=== PATIENT | female | born 1990 | race Caucasian/White ===

== ENCOUNTER 2021-11-01 07:41 | Inpatient (IN) ==
[2021-11-01] MEDS ORDERED: OXYTOCIN 30 UNITS/500 ML BAG IV PRN (10:10)
--- NOTE | 2021-11-01 10:10 | Labor Progress Brief Note ---
Date of Service November 01, 2021 Assessment & Plan (1) Encounter for induction of labor: Plan: Induction for IUGR at 38+ week Reviewed induction with pt Bedside sono; Vt VE; Ft/thick/post/-3 EFW 6lbs Starting with Cervidil (2) IUGR (intrauterine growth restriction): Admission and Anticipated Discharge Date Admission Date: November 01, 2021 Results & Data ([facility]) Vital Signs (Past 12 Hours) Vital Signs Temp Pulse Resp BP 11/01/21 08:04 36.5 C 18 11/01/21 07:57 66 136/81 11/01/21 07:56 36.5 C 16
[2021-11-01] MEDS: miSOPROStoL 50 MCG TAB PO SCH ×2 (10:26→14:32)
[2021-11-01 10:37] LABS: Hematocrit (blood only) 36.3 % (34.1-44.9); Hemoglobin 12.2 g/dl (12.0-16.0); Mean Corpuscular Hgb Conc 33.6 g/dL (32.0-36.0); Mean Corpuscular Volume 83.3 fL (80.0-100.0); Mean Platelet Volume 10.7 fL (9.4-12.3); Platelet Count 249 K/uL (130-400); RDW Coefficient of Variation 12.3 % (11.5-14.5); RDW Standard Deviation 37.3 fL (36.4-46.3); Red Blood Count 4.36 M/uL (3.93-5.22); White Blood Count 12.37 K/ul (4.8-10.8)
[2021-11-01] MEDS ORDERED: DINOPROSTONE 10 MG INSERT PV ONE (22:12)
--- NOTE | 2021-11-01 23:00 | Labor Progress Brief Note ---
Date of Service November 01, 2021 Assessment & Plan (1) IUGR (intrauterine growth restriction): Plan: Induction for IUGR FHR; CAT1 Ctx ; Minimal VE; Ft/post Cervidil placed in vagina Admission and Anticipated Discharge Date Admission Date: November 01, 2021 Results & Data ([facility]) Vital Signs (Past 12 Hours) Vital Signs Temp Pulse Resp BP 11/01/21 22:44 89 143/82 H 11/01/21 19:59 36.7 C 18 11/01/21 19:07 55 L 133/93 11/01/21 14:35 36.8 C 16 11/01/21 14:33 71 127/74 11/01/21 11:29 64 121/85 11/01/21 11:25 36.7 C 16
[2021-11-02] MEDS: miSOPROStoL 50 MCG TAB PO SCH ×4 (14:03→22:22)
[2021-11-02] MEDS: LACTATED RINGER'S 1,000 ML IV PRN (17:08)
[2021-11-02] MEDS ORDERED: DINOPROSTONE 10 MG INSERT PV ONE (19:00)
--- NOTE | 2021-11-02 19:30 | Labor Progress Brief Note ---
Date of Service November 02, 2021 Assessment & Plan (1) IUGR (intrauterine growth restriction): Plan: Induction for IUGR FHR; CAT1 Ctx ; Minimal VE; 1 c/50/-3 Plan Cervidil paced in the vagina for cervical ripening pain meds including epidural as the pt deires Admission and Anticipated Discharge Date Admission Date: November 01, 2021 Results & Data ([facility]) Vital Signs (Past 12 Hours) Vital Signs Temp Pulse Resp BP 11/02/21 19:22 66 124/87 11/02/21 19:19 69 132/94 11/02/21 18:16 63 133/82 11/02/21 17:09 62 126/84 11/02/21 14:03 76 131/83 11/02/21 11:50 36.9 C 84 20 131/73 11/02/21 10:04 72 140/90 11/02/21 08:18 54 L 120/78
[2021-11-02] MEDS ORDERED: miSOPROStoL 50 MCG TAB PO SCH (21:00)
--- NOTE | 2021-11-03 08:22 | Labor Progress Brief Note ---
Date of Service November 03, 2021 Assessment & Plan Admission and Anticipated Discharge Date Admission Date: November 01, 2021 Physical Exam Genitourinary: Manual OB Exam: + cervical dilation fingertip, + cervical effacement 50% and + station high OB Exam Monitor Tracing: + external FHT monitor used, + external uterine monitor used, + category I and + normal FHT variability Cervidil removed plan for Cole for cervical ripening Results & Data ([facility]) Vital Signs (Past 12 Hours) Vital Signs Temp Pulse Resp BP 11/03/21 07:15 36.8 C 16 11/03/21 07:15 63 130/89 11/03/21 03:50 18 11/03/21 03:50 36.6 C 18 11/03/21 03:51 81 111/69 11/03/21 00:22 36.6 C 65 16 111/70 11/02/21 22:01 20 11/02/21 22:01 36.7 C 20 11/02/21 22:03 61 132/78
[2021-11-03] MEDS ORDERED: OXYTOCIN 30 UNITS/500 ML BAG IV PRN (10:14)
[2021-11-03] MEDS ORDERED: Nursing to Pharmacy Communication SCH (10:15)
[2021-11-03] MEDS: LACTATED RINGER'S 1,000 ML IV PRN ×3 (10:32→22:23)
--- NOTE | 2021-11-03 10:35 | Labor Progress Brief Note ---
Date of Service November 03, 2021 Assessment & Plan Admission and Anticipated Discharge Date Admission Date: November 01, 2021 Physical Exam Genitourinary: Manual OB Exam: + cervical dilation fingertip, + cervical effacement 50% and + station high OB Exam Monitor Tracing: + external FHT monitor used, + external uterine monitor used, + category I and + normal FHT variability Cole placed in cervix with 30 ml saline placed in balloon. Results & Data ([facility]) Vital Signs (Past 12 Hours) Vital Signs Temp Pulse Resp BP 11/03/21 07:15 36.8 C 16 11/03/21 07:15 63 130/89 11/03/21 03:50 18 11/03/21 03:50 36.6 C 18 11/03/21 03:51 81 111/69 11/03/21 00:22 36.6 C 65 16 111/70
[2021-11-03] MEDS ORDERED: NALOXONE HCL 1 MG in SODIUM CHLORIDE 0.9% 1000ML 1,000 ML IV PRN (16:30)
[2021-11-03] MEDS ORDERED: ePHEDrine sulfate 50 MG/ML AMP ONE (16:30)
[2021-11-03] MEDS ORDERED: ePHEDrine sulfate 50 MG/ML AMP IV PRN (16:30)
[2021-11-03] MEDS ORDERED: NALOXONE HCL 0.4 MG/1 ML VIAL/CARP IV PRN (16:30)
[2021-11-03] MEDS ORDERED: fentaNYL citrate 100 MCG/2 ML VIAL ONE (16:30)
[2021-11-03] MEDS ORDERED: SODIUM CHLORIDE 0.9% INJ 10 ML VIAL ONE (16:30)
[2021-11-03] MEDS ORDERED: diphenhydrAMINE 50 MG/ML VIAL IV PRN (16:30)
[2021-11-03] MEDS ORDERED: ONDANSETRON INJ 2 MG/ML 2 ML VIAL IV PRN (16:30)
[2021-11-03] MEDS ORDERED: fentaNYL 2MCG/ML ROPIVACAINE 1.25MG/ML 100 ML BAG EPI PRN (16:30)
[2021-11-03] MEDS ORDERED: NALBUPHINE HCL INJ 10 MG/ML AMP IV PRN (16:30)
[2021-11-03] MEDS ORDERED: BUPIVACAINE 0.25% 30 ML VIAL ONE (16:30)
[2021-11-03] MEDS ORDERED: fentaNYL 2MCG/ML ROPIVACAINE 1.25MG/ML 100 ML BAG EPI ONE (16:31)
[2021-11-03] MEDS ORDERED: LIDOCAINE 2%/EPINEPHRINE 1:200,000 20 ML SDV ONE (16:31)
--- NOTE | 2021-11-03 16:31 | Anesthesiology Consultation ---
Date of Service November 03, 2021 Assessment & Plan (1) Encounter for pre-operative examination: Chart Review Chart Review: Patient NOT seen in Pre Admission Testing and Acceptable Risk for Labor Epidural Consults Requested none History Height/Weight Height: 5 ft 2 in Weight: 75.297 kg Allergies Allergy/AdvReac Type Severity Reaction Status Date / Time No Known Allergies Allergy Mild Unverified 08/17/06 11:54 Medications Home Medications Medication Instructions Recorded Confirmed Last Taken vitamins-iron fumarate 65 1 tab PO DAILY 11/02/21 11/02/21 10/31/21 20:00 mg iron-folic acid 1 mg tablet Active Medications Generic Name Dose Route Start Last Admin Trade Name Freq PRN Reason Stop Dose Admin Lactated Ringer's 1,000 mls @ 125 mls/hr 11/01/21 10:10 11/03/21 16:50 Lr IV 11/05/21 10:09 999 mls/hr .Q8H PRN Administration L&D Protocol Protocol Oxytocin 30 units in 500 mls @ 20 mls/hr 11/03/21 10:14 11/03/21 15:35 Pitocin IV 11/05/21 10:13 1.2 units/hr .Q24H PRN 20 mls/hr Labor Induction/Augmentation Titration Protocol 1.2 UNITS/HR Past Medical History Medical History Asthma Past Surgical History Surgical History [place] teeth removed Social History Smoking Status: Never smoker Do You Dip or Chew Tobacco: No Hx Alcohol Use: No Hx Substance Use: No Physical Exam Vital Signs Last Vital Signs Temp 37.0 C 11/03/21 14:35 Pulse 69 11/03/21 16:34 Resp 16 11/03/21 14:35 BP 135/92 11/03/21 16:16 Pulse Ox 96 11/03/21 16:34 Testing Laboratory Results 11/01/21 09:40
--- NOTE | 2021-11-03 22:16 | Labor Progress Brief Note ---
Date of Service November 03, 2021 Assessment & Plan Admission and Anticipated Discharge Date Admission Date: November 01, 2021 Physical Exam Genitourinary: Manual OB Exam: + cervical dilation 9 cm and 10 cm, + cervical effacement 100%, + station + 1 and + amniotic fluid clear OB Exam Monitor Tracing: + external FHT monitor used, + external uterine monitor used, + category I and + normal FHT variability cervix with anterior lip Results & Data ([facility]) Vital Signs (Past 12 Hours) Vital Signs Temp Pulse Resp BP Pulse Ox 11/03/21 19:00 16 11/03/21 12:40 36.6 C 20 11/03/21 22:14 95 H 98 11/03/21 22:09 97 H 97 11/03/21 22:04 69 96 11/03/21 21:59 83 97 11/03/21 21:58 76 120/70 11/03/21 21:54 70 95 11/03/21 21:49 67 96 11/03/21 21:44 62 96 11/03/21 21:39 65 96 11/03/21 21:34 64 96 11/03/21 21:29 55 L 96 11/03/21 21:28 54 L 115/67 11/03/21 21:24 57 L 97 11/03/21 21:21 56 L 94 11/03/21 21:19 56 L 95 11/03/21 21:14 53 L 96 11/03/21 21:10 16 11/03/21 21:10 36.5 C 16 11/03/21 21:09 61 97 11/03/21 21:04 55 L 96 11/03/21 20:59 54 L 96 11/03/21 20:58 53 L 112/63 11/03/21 20:54 58 L 98 11/03/21 20:49 54 L 97 11/03/21 20:44 60 97 11/03/21 20:39 56 L 97 11/03/21 20:34 55 L 97 11/03/21 20:29 57 L 98 11/03/21 20:27 55 L 119/64 11/03/21 20:24 57 L 99 11/03/21 20:19 75 97 11/03/21 20:14 73 98 11/03/21 20:09 101 H 100 11/03/21 20:04 79 98 11/03/21 19:59 61 98 11/03/21 19:58 62 130/82 11/03/21 19:54 58 L 97 11/03/21 19:49 58 L 99 11/03/21 19:44 61 99 11/03/21 19:39 71 98 11/03/21 19:34 58 L 99 11/03/21 19:29 61 99 11/03/21 19:28 57 L 131/87 11/03/21 19:24 62 99 11/03/21 19:15 18 11/03/21 19:15 36.8 C 18 11/03/21 19:19 60 100 11/03/21 19:14 66 99 11/03/21 19:09 71 99 11/03/21 19:04 66 99 11/03/21 18:59 72 99 11/03/21 18:58 55 L 120/73 11/03/21 18:54 61 100 11/03/21 18:49 56 L 99 11/03/21 18:44 60 98 11/03/21 18:39 53 L 97 11/03/21 18:34 54 L 97 11/03/21 18:30 16 11/03/21 18:30 16 11/03/21 18:29 53 L 98 11/03/21 18:28 53 L 113/66 11/03/21 18:24 54 L 98 11/03/21 18:19 54 L 99 11/03/21 18:14 55 L 99 11/03/21 18:09 60 98 11/03/21 18:01 16 11/03/21 18:01 16 11/03/21 18:04 58 L 99 11/03/21 17:59 62 98 11/03/21 17:54 98 11/03/21 17:54 72 11/03/21 17:54 58 L 133/85 11/03/21 17:49 59 L 98 11/03/21 17:48 60 128/83 11/03/21 17:44 71 98 11/03/21 17:43 65 131/87 11/03/21 17:39 65 98 11/03/21 17:15 16 11/03/21 17:15 16 11/03/21 17:35 18 11/03/21 17:35 18 11/03/21 17:37 62 127/83 11/03/21 17:34 57 L 98 11/03/21 17:33 60 130/83 11/03/21 17:29 97 11/03/21 17:29 61 11/03/21 17:29 59 L 127/82 11/03/21 17:24 75 97 11/03/21 17:08 16 11/03/21 17:08 16 11/03/21 17:13 16 11/03/21 17:13 16 11/03/21 17:21 16 11/03/21 17:21 16 11/03/21 17:22 71 132/88 11/03/21 17:19 62 97 11/03/21 17:20 65 125/83 11/03/21 17:18 72 128/83 11/03/21 17:16 62 131/82 11/03/21 17:14 66 138/84 97 11/03/21 17:12 88 138/85 11/03/21 17:10 71 143/78 H 11/03/21 17:09 72 97 11/03/21 17:06 66 135/85 11/03/21 17:04 72 138/93 96 11/03/21 17:02 65 136/86 11/03/21 16:59 83 96 11/03/21 17:00 83 18 136/87 11/03/21 16:58 72 133/87 11/03/21 16:56 68 141/88 H 11/03/21 16:54 98 11/03/21 16:54 97 H 11/03/21 16:54 67 139/87 11/03/21 16:52 71 18 145/83 H 11/03/21 16:50 70 151/83 H 11/03/21 16:49 70 16 97 11/03/21 16:48 73 150/85 H 11/03/21 16:30 16 11/03/21 16:30 36.9 C 16 11/03/21 16:47 86 16 176/86 H 11/03/21 16:44 105 H 99 11/03/21 16:39 94 H 100 11/03/21 16:34 69 96 11/03/21 16:16 66 135/92 11/03/21 15:46 68 132/85 11/03/21 15:14 60 133/84 11/03/21 14:45 56 L 136/93 11/03/21 14:35 16 11/03/21 14:35 37.0 C 16 11/03/21 14:15 57 L 134/79 11/03/21 13:44 57 L 126/84 11/03/21 13:16 55 L 125/90 11/03/21 11:45 16 11/03/21 11:45 36.7 C 16 11/03/21 12:44 61 18 137/92 11/03/21 12:14 56 L 122/81 11/03/21 11:44 55 L 127/88 11/03/21 11:10 68 136/94 11/03/21 11:05 67 133/96 11/03/21 11:04 60 136/91 11/03/21 10:39 77 141/95 H
--- NOTE | 2021-11-04 01:18 | Delivery Summary ---
Vaginal Delivery Summary Date of Service November 04, 2021 Vaginal Delivery Summary Delivery Note live male CEM over intact perineum with nuchal cord x1 reduced at delivery with delayed cord clamping and Apgars 8/9 weight pending. Cord blood obtained followed by spontaneous delivery of intact placenta to be sent to pathology. No tears. EBL 100 ml. Bladder drained with red rubber catheter of 150 ml. clear urine. Final sponge and needle count are correct. Mom and baby stable.
[2021-11-04] MEDS ORDERED: ACETAMINOPHEN 325 MG TAB PO PRN (01:24)
[2021-11-04] MEDS ORDERED: DIPHTHERIA/TETANUS/PERTUSSIS 0.5 ML SYR/VIAL IM ONE (01:24)
[2021-11-04] MEDS ORDERED: HYDROCORTISONE ACETATE 25 MG SUPP PR PRN (01:24)
[2021-11-04] MEDS ORDERED: OXYTOCIN 30 UNITS/500 ML BAG IV PRN (01:24)
[2021-11-04] MEDS ORDERED: BENZOCAINE 20% AER SPR 82.5 GM CAN EXT PRN (01:24)
[2021-11-04] MEDS: IBUPROFEN 600 MG TAB PO PRN ×4 (04:03→18:14)
[2021-11-04] MEDS: DOCUSATE SODIUM 100 MG CAP PO SCH ×2 (08:11→20:56)
[2021-11-04] MEDS: PRENATAL VITAMIN 1 TAB PO SCH (08:11)
[2021-11-04] MEDS ORDERED: NON-FORMULARY MEDICATION (Prenatal Vit-Iron Fum-Folic Ac 65 mg iron- 1 mg Tablet) PO SCH (09:00)
--- NOTE | 2021-11-04 09:13 | Anesthesia Procedure Note ---
Date of Service November 04, 2021 Anesthesia Post Epidural Note Vital Signs Vital Signs: Temp Pulse Resp BP Pulse Ox O2 Del Method 37.7 C H 85 18 114/73 98 11/04/21 04:00 11/04/21 04:00 11/04/21 04:00 11/04/21 04:00 11/04/21 04:00 11/04/21 04:00 Pain Intensity Abdomen: Pain Intensity: 1 Notes Mental Status: alert / awake / arousable and participated in evaluation Nausea / Vomiting: adequately controlled Pain: adequately controlled Airway Patency, RR, SpO2: stable & adequate BP & HR: stable & adequate Hydration State: stable & adequate Neuraxial Anesthesia: was administered and sensory block is resolving Anesthetic Complications: no major complications apparent and Pt Satisfied with anesthetic care Epidural: Removed without complications and With tip intact
--- NOTE | 2021-11-04 11:21 | Obstetrical Progress Note ---
Date of Service November 04, 2021 Assessment & Plan (1) Normal course: PPD #1 pt doing well no coampatints Subjective Ambulation: ambulating normally Voiding: no voiding problems Passing Gas:: Yes Diet Tolerance:: regular diet Lochia:: Small Feeding Type:: breast feeding Review of Systems All systems reviewed & are unremarkable except as noted in HPI & below Physical Exam Constitutional WD/WN, vitals as above well developed and well nourished Eyes PERRL, conjunctivae normal, anicteric sclerae Neck trachea midline, no thyromegaly Respiratory normal respiratory effort, lungs clear to auscultation Auscultation: no crackles, no rales and no wheezes Cardiovascular RRR, no murmur, no edema Gastrointestinal (Abdomen) normal bowel sounds, soft, nontender, no hepatosplenomegaly Uterus is below umbilicus Musculoskeletal no cyanosis or clubbing, extremities motor strength 5/5 Skin no rashes, warm and dry Neurologic patellar DTR's 2+ bilat, sensation intact Psychiatric A+Ox3, euthymic affect Genitourinary normal external appearance Results & Data ([facility]) Vital Signs (Past 12 Hours) Vital Signs Temp Pulse Pulse Resp BP BP Pulse Ox 11/04/21 08:05 36.4 C L 74 21 124/76 11/04/21 04:00 37.7 C H 85 18 114/73 98 11/04/21 03:14 75 126/79 11/04/21 02:58 77 18 130/80 11/04/21 02:30 72 121/72 11/04/21 01:44 73 96 11/04/21 01:40 129/71 11/04/21 01:39 76 96 11/04/21 01:34 69 96 11/04/21 01:29 75 96 11/04/21 01:27 105 H 94 11/04/21 01:24 80 95 11/04/21 01:25 84 123/71 11/04/21 01:19 86 95 11/04/21 01:20 82 127/71 11/04/21 01:16 76 122/69 11/04/21 01:14 84 94 11/04/21 01:10 72 124/76 11/04/21 01:09 81 96 11/04/21 01:04 88 96 11/04/21 01:05 83 127/79 07/15/22 00:59 97 H 95 11/04/21 00:57 93 H 136/81 94 11/04/21 00:54 89 97 11/04/21 00:49 142 H 96 11/04/21 00:44 106 H 96 11/04/21 00:39 152 H 95 11/04/21 00:34 95 H 96 11/04/21 00:29 145 H 97 11/04/21 00:27 88 129/79 11/04/21 00:24 95 H 95 11/04/21 00:19 103 H 95 11/04/21 00:14 159 H 96 11/04/21 00:09 161 H 96 11/04/21 00:04 110 H 96 11/03/21 23:59 110 H 95 11/03/21 23:58 131 H 138/77 11/03/21 23:54 115 H 95 11/03/21 23:49 143 H 97 11/03/21 23:44 151 H 98 11/03/21 23:40 125 H 91 11/03/21 23:39 98 H 97 11/03/21 23:34 139 H 97 11/03/21 23:29 93 H 98 11/03/21 23:28 83 127/83 11/03/21 23:24 105 H 97 O2 Del Method 11/04/21 08:05 Room Air 11/04/21 04:00 Room Air 11/04/21 03:14 11/04/21 02:58 11/04/21 02:30 11/04/21 01:44 11/04/21 01:40 11/04/21 01:39 11/04/21 01:34 11/04/21 01:29 11/04/21 01:27 11/04/21 01:24 11/04/21 01:25 11/04/21 01:19 11/04/21 01:20 11/04/21 01:16 11/04/21 01:14 11/04/21 01:10 11/04/21 01:09 11/04/21 01:04 11/04/21 01:05 11/04/21 00:59 11/04/21 00:57 11/04/21 00:54 11/04/21 00:49 11/04/21 00:44 11/04/21 00:39 11/04/21 00:34 11/04/21 00:29 11/04/21 00:27 11/04/21 00:24 11/04/21 00:19 11/04/21 00:14 11/04/21 00:09 11/04/21 00:04 11/03/21 23:59 11/03/21 23:58 11/03/21 23:54 11/03/21 23:49 11/03/21 23:44 11/03/21 23:40 11/03/21 23:39 11/03/21 23:34 11/03/21 23:29 11/03/21 23:28 11/03/21 23:24
[2021-11-05] MEDS: IBUPROFEN 600 MG TAB PO PRN ×2 (05:38→09:06)
[2021-11-05 07:00] LABS: Basophils # (auto) 0.08 K/uL (0-0.2); Basophils % (auto) 0.5 %; Eosinophils # (auto) 0.07 K/uL (0-0.50); Eosinophils % (auto) 0.4 %; Hematocrit (blood only) 31.9 % (34.1-44.9); Hemoglobin 10.7 g/dl (12.0-16.0); Immature Granulocytes # (auto) 0.09 K/uL (0.00-0.02); Immature Granulocytes % (auto) 0.5 %; Lymphocytes # (auto) 2.33 K/uL (1.2-3.4); Lymphocytes % (auto) 13.5 %; Mean Corpuscular Hemoglobin 28.2 pg (25.0-34.0); Mean Corpuscular Hgb Conc 33.5 g/dL (32.0-36.0); Mean Corpuscular Volume 83.9 fL (80.0-100.0); Mean Platelet Volume 10.6 fL (9.4-12.3); Monocytes # (auto) 0.88 K/uL (0.24-0.82); Monocytes % (auto) 5.1 %; Neutrophils # (auto) 13.79 K/uL (1.4-6.5); Platelet Count 212 K/uL (130-400); RDW Coefficient of Variation 12.6 % (11.5-14.5); RDW Standard Deviation 38.4 fL (36.4-46.3); White Blood Count 17.24 K/ul (4.8-10.8)
[2021-11-05] MEDS ORDERED: FERROUS SULFATE 325 MG TAB PO SCH (09:00)
[2021-11-05] MEDS: DOCUSATE SODIUM 100 MG CAP PO SCH (09:06)
[2021-11-05] MEDS: PRENATAL VITAMIN 1 TAB PO SCH (09:06)
--- NOTE | 2021-11-05 09:35 | Obstetrical Progress Note ---
Date of Service November 05, 2021 Assessment & Plan Admission and Anticipated Discharge Date Admission Date: November 01, 2021 Subjective Patient is seen and examined. She feels well, no complaints. Desires d/c if possible She was here since 11/01 for long IOL Ambulating without dizziness Voiding without difficulty Tolerating regular diet with out N&V Bleeding is minimal No fever/ chills/ CP/ SOB/ N&V/ Leg pain Breast feeding without problems Vital Signs Temp Pulse Resp BP Pulse Ox O2 Del Method 11/04/21 23:30 37 C 70 16 123/85 97 Room Air 11/04/21 20:07 37.1 C 76 18 130/83 96 Room Air 11/04/21 16:30 36.6 C 75 22 118/77 Room Air 11/04/21 11:45 36.9 C 84 19 118/76 Room Air Lab Results 11/01/21 11/05/21 Range/Units 09:40 06:02 WBC 12.37 H 17.24 H (4.8-10.8) K/ul RBC 4.36 3.80 L (3.93-5.22) M/uL Hgb 12.2 10.7 L (12.0-16.0) g/dl Hct 36.3 31.9 L (34.1-44.9) % MCV 83.3 83.9 (80.0-100.0) fL MCH 28.0 28.2 (25.0-34.0) pg MCHC 33.6 33.5 (32.0-36.0) g/dL RDW Std Deviation 37.3 38.4 (36.4-46.3) fL RDW Coeff of Rob 12.3 12.6 (11.5-14.5) % Plt Count 249 212 (130-400) K/uL MPV 10.7 10.6 (9.4-12.3) fL Immature Gran % (Auto) 0.5 % Neut % (Auto) 80.0 % Lymph % (Auto) 13.5 % Darke % (Auto) 5.1 % Eos % (Auto) 0.4 % Baso % (Auto) 0.5 % Neut # (Auto) 13.79 H (1.4-6.5) K/uL Lymph # (Auto) 2.33 (1.2-3.4) K/uL Darke # (Auto) 0.88 H (0.24-0.82) K/uL Eos # (Auto) 0.07 (0-0.50) K/uL Baso # (Auto) 0.08 (0-0.2) K/uL Immature Gran # (Auto) 0.09 H (0.00-0.02) K/uL PE: General: Alert, orientedx3, NAD Abd: soft, NT, fundus firm, below Umbilicus Perineum intact, Lochia rubra minimal Ext; NT, no edema AP: 31 yo s/p , ppd# 1.5 delivered at 0048 on 11/04 VSS Afebrile doing well Desires d/c today Elevated WBCC, afebrile, most like from long IOL/ Labor Plan to repeat CBC tonight and d/c if trending down Continue routine care All questions were answered Discussed when to call. Results & Data ([facility]) Vital Signs (Past 12 Hours) Vital Signs Temp Pulse Resp BP Pulse Ox O2 Del Method 11/04/21 23:30 37 C 70 16 123/85 97 Room Air
[2021-11-05 17:23] LABS: Basophils # (auto) 0.06 K/uL (0-0.2); Basophils % (auto) 0.4 %; Eosinophils # (auto) 0.08 K/uL (0-0.50); Eosinophils % (auto) 0.6 %; Hematocrit (blood only) 32.1 % (34.1-44.9); Hemoglobin 10.8 g/dl (12.0-16.0); Immature Granulocytes # (auto) 0.07 K/uL (0.00-0.02); Immature Granulocytes % (auto) 0.5 %; Lymphocytes # (auto) 2.58 K/uL (1.2-3.4); Lymphocytes % (auto) 18.8 %; Mean Corpuscular Hemoglobin 28.2 pg (25.0-34.0); Mean Corpuscular Hgb Conc 33.6 g/dL (32.0-36.0); Mean Corpuscular Volume 83.8 fL (80.0-100.0); Mean Platelet Volume 9.9 fL (9.4-12.3); Monocytes # (auto) 1.11 K/uL (0.24-0.82); Monocytes % (auto) 8.1 %; Neutrophils # (auto) 9.84 K/uL (1.4-6.5); Neutrophils % (auto) 71.6 %; Platelet Count 209 K/uL (130-400); RDW Coefficient of Variation 12.6 % (11.5-14.5); RDW Standard Deviation 38.1 fL (36.4-46.3); Red Blood Count 3.83 M/uL (3.93-5.22); White Blood Count 13.74 K/ul (4.8-10.8)
[2021-11-05] MEDS ORDERED: bisacodyL 5 MG TABEC PO SCH (20:00)
[2021-11-06] MEDS ORDERED: bisacodyL 10 MG SUPP PR PRN
== END 2021-11-05 19:40 | disposition home or self-care (01) | DRG 807 ==
LOC: 4S1 07:41 → 4E1 11-04 03:55

== ENCOUNTER 2023-07-18 07:56 | Inpatient (IN) ==
[2023-07-18] MEDS: LACTATED RINGER'S 1,000 ML IV PRN (08:45)
[2023-07-18] MEDS ORDERED: LIDOCAINE 1% LOCAL 20 ML VIAL INFIL PRN (08:52)
--- NOTE | 2023-07-18 09:00 | History & Physical Report ---
Date of Service July 18, 2023 Assessment & Plan (1) 40 weeks gestation of : Plan: Admit, routine labs Start oxytocin for augmentation Epidural if patient request Anticipate spontaneous vaginal delivery (2) History of prior with IUGR : (3) History of depression, currently in third trimester: (4) Mild intermittent asthma: Admission and Anticipated Discharge Date Admission Date: July 18, 2023 History of Present Illness Chief Complaint: IOL Primary Care Provider: Joyce Taveras PA-C Patient is a pleasant 33-year-old -0-0-1 at 40 weeks and 2 days who presents for induction of labor for postdates. Patient denies any regular contractions, leaking of fluid or vaginal bleeding. Notes good movement. Patient denies any headache, blurry vision, right upper quadrant or epigastric pain. Otherwise feeling well has been complicated by mild intermittent asthma, has not used inhaler for several months. History of depression and anxiety, not currently on anything. Notes a history of IUGR her last , growth has been appropriate this . She denies any history of STDs, including genital herpes. States she is safe at home. Allergies Allergy/AdvReac Type Severity Reaction Status Date / Time No Known Allergies Allergy Mild Unverified 08/17/06 11:54 Home Medications Medication Instructions Recorded Confirmed Type vitamins-iron fumarate 65 1 tab PO DAILY 11/02/21 11/02/21 History mg iron-folic acid 1 mg tablet ferrous sulfate 325 mg (65 mg 325 mg PO DAILY #40 tabs 11/05/21 Rx iron) tablet,delayed release ibuprofen 600 mg tablet 600 mg PO Q6 #40 tabs 11/05/21 Rx vit-iron fum-folic ac 1 tab PO DAILY #90 tabs 11/05/21 Rx Patient History Medical History Asthma Surgical History [place] teeth removed Social History Smoking Status: Never smoker Second Hand Exposure: No; Do You Dip or Chew Tobacco: No; Tobacco Cessation Education Requested by Patient: No Hx Alcohol Use: No Hx Substance Use: No Preferred Language: Maori Communication Ability: Effective Electric Bath Attendant Required: No Beliefs That Will Affect Care: None marital status: Current Living Situation: Spouse Current Living Situation Comment: Jed- , 1 Dog Other Information That Helps Us Care for You: No Feels Safe at Home: Yes Safety Concerns: Feels Safe At This Time Assistive Devices: None OB History -0-0-1 x 1 without any complication EMERGENCY DEPARTMENT PHYSICIAN History See record Review of Systems All systems reviewed & are unremarkable except as noted in HPI & below Physical Exam Constitutional: WD/WN, vitals as above Respiratory: normal respiratory effort, lungs clear to auscultation Cardiovascular: RRR, no murmur, no edema Gastrointestinal (Abdomen): normal bowel sounds, soft, nontender, no hepatosplenomegaly EFW 3500g cephalic Genitourinary: Cervix: 3/50/-3, membranes initially sweep but patient desires AROM at this time. AROM completed with scant clear fluid, IUPC was placed, no cord felt. No complication Results & Data Vital Signs (Past 12 Hours) Vital Signs Temp Pulse Resp BP 07/18/23 08:21 88 132/79 07/18/23 08:16 36.8 C 88 16 132/79 Monitoring External Monitor heart tracing: Baseline 125, moderate variability, positive accelerations no decelerations, category 1 tracing Tocodynamometer Irregular contractions (4) Mild intermittent asthma Asthma complication type: uncomplicated Qualified Code(s): J45.20 - Mild intermittent asthma, uncomplicated
[2023-07-18] MEDS: OXYTOCIN 30 UNITS/NSS 30 UNITS/500 ML BAG IV PRN ×2 (09:05→20:53)
[2023-07-18 09:41] LABS: Hematocrit (blood only) 35.1 % (37.0-47.0); Hemoglobin 11.8 g/dl (12.0-16.0); Mean Corpuscular Hemoglobin 27.4 pg (25.0-34.0); Mean Corpuscular Hgb Conc 33.6 g/dL (32.0-36.0); Mean Corpuscular Volume 81.6 fL (80.0-100.0); Mean Platelet Volume 10.3 fL (9.4-12.4); Platelet Count 224 K/uL (130-400); RDW Coefficient of Variation 12.5 % (11.5-14.5); RDW Standard Deviation 37.1 fL (36.4-46.3); White Blood Count 11.68 K/ul (4.8-10.8)
[2023-07-18] MEDS ORDERED: BUPIVACAINE 0.25% PF 30 ML VIAL EPI PRN (11:43)
[2023-07-18] MEDS ORDERED: NALOXONE HCL 0.4 MG/1 ML VIAL/CARP IV PRN (11:43)
[2023-07-18] MEDS ORDERED: diphenhydrAMINE 50 MG/ML VIAL IV PRN (11:43)
[2023-07-18] MEDS ORDERED: NALOXONE HCL 1 MG in SODIUM CHLORIDE 0.9% 1,000 ML IV PRN (11:43)
[2023-07-18] MEDS ORDERED: NALBUPHINE HCL 5 MG in SYRINGE 0 ML IV PRN (11:43)
[2023-07-18] MEDS ORDERED: fentANYL 2 MCG/ML BUPIVacaine 0.125%-NSS 100ML BAG EPI PRN (11:43)
[2023-07-18] MEDS ORDERED: SODIUM CHLORIDE 0.9% PF INJ 10 ML VIAL EPI PRN (11:43)
[2023-07-18] MEDS ORDERED: LIDOCAINE 2% MPF LOCAL 5 ML VIAL EPI PRN (11:43)
[2023-07-18] MEDS ORDERED: ePHEDrine sulfate 50 MG/ML AMP IV PRN (11:43)
[2023-07-18] MEDS ORDERED: ROPIVACAINE 0.5% PF 5 MG/ML 20 ML VIAL EPI PRN (11:43)
[2023-07-18] MEDS ORDERED: fentaNYL citrate PF 100 MCG/2 ML VIAL EPI PRN (11:43)
--- NOTE | 2023-07-18 11:43 | Anesthesiology Consultation ---
Date of Service July 18, 2023 Assessment & Plan ASA ASA2 Proposed Anesthesia Anesthesia Type: Labor Epidural Risk / Benefits Reviewed With: PT / POA / Parent / Guardian, Accepts Plan and Informed Consent Obtained History Height/Weight Height: 5 ft 2 in Weight: 65.771 kg Allergies Allergy/AdvReac Type Severity Reaction Status Date / Time No Known Allergies Allergy Mild Unverified 08/17/06 11:54 Medications Home Medications Medication Instructions Recorded Confirmed Last Taken vitamins-iron fumarate 65 1 tab PO DAILY 11/02/21 07/18/23 07/18/23 06:00 mg iron-folic acid 1 mg tablet ferrous sulfate 325 mg (65 mg 325 mg PO DAILY #40 tabs 11/05/21 07/18/23 Unknown iron) tablet,delayed release Active Medications Generic Name Dose Route Start Last Admin Trade Name Freq PRN Reason Stop Dose Admin Oxytocin 30 units in 500 mls @ 12 mls/hr 07/18/23 08:52 07/18/23 11:35 Pitocin 30 Units/Nss IV 07/20/23 08:51 0.72 units/hr .Q24H PRN 12 mls/hr Labor Induction/Augmentation Titration Protocol 0.72 UNITS/HR Lactated Ringer's 1,000 mls @ 125 mls/hr 07/18/23 08:52 07/18/23 12:09 Lr IV 07/20/23 08:51 999 mls/hr .Q8H PRN Administration L&D Protocol Protocol Past Medical History Medical History (Updated 07/18/23 @ 09:54 by Natividad Murray RN) Anemia Anxiety depression Normal course IUGR (intrauterine growth restriction) Encounter for induction of labor Asthma Exercise / Class Metabolic Activity II 4-5 Yardwork/Stairs/Walk up hill Past Surgical History Surgical History [place] teeth removed Past Anesthesia History No Hx of Anesthesia Complications and No Family Hx of Anesthesia Complications History of PONV No Hx of PONV and No Hx of Motion Sickness Social History Smoking Status: Never smoker Do You Dip or Chew Tobacco: No Hx Alcohol Use: No Hx Substance Use: No Review of Systems denies fever/cough/ colds/ chest pain/ SOB/ SANTOS denies SANTOS Physical Exam Vital Signs Last Vital Signs Temp 36.8 C 07/18/23 10:45 Pulse 72 07/18/23 12:19 Resp 16 07/18/23 08:16 BP 136/81 07/18/23 12:19 Pulse Ox 98 07/18/23 12:19 ENMT Mouth: no TMJ abnormality and no dentition abnormality Thyromental Distance: > or= 3.5 Finger Breadths Mallampati Class: II Neck neck extension not limited Respiratory normal respiratory effort; no respiratory distress Auscultation: lungs clear to auscultation bilaterally Cardiovascular Rate/Rhythm: regular rate and regular rhythm Neurologic moves all extremities Psychiatric Orientation: alert and oriented x 3 Testing Laboratory Results 07/18/23 09:10
[2023-07-18] MEDS: fentaNYL citrate PF 100 MCG/2 ML VIAL ONE (12:13)
[2023-07-18] MEDS: BUPIVACAINE 0.25% PF 30 ML VIAL ONE (12:13)
[2023-07-18] MEDS: LIDOCAINE 2%/EPINEPHRINE 1:200,000 20 ML PF ONE (12:13)
[2023-07-18] MEDS: fentANYL 2 MCG/ML BUPIVacaine 0.125%-NSS 100ML BAG ONE (12:14)
[2023-07-18] MEDS: ePHEDrine sulfate 50 MG/ML AMP ONE (12:24)
[2023-07-18] MEDS: SODIUM CHLORIDE 0.9% PF INJ 10 ML VIAL EPI STA (12:25)
--- NOTE | 2023-07-18 12:43 | Obstetrical Progress Note ---
Date of Service July 18, 2023 Assessment & Plan (1) 40 weeks gestation of : Plan: Continue oxytocin for augmentation Anticipate spontaneous vaginal delivery (2) History of prior with IUGR : (3) History of depression, currently in third trimester: (4) Mild intermittent asthma: Admission and Anticipated Discharge Date Admission Date: July 18, 2023 Subjective Patient comfortable with epidural at this time, denies any pressure. Denies any other complaints Physical Exam Genitourinary: heart tracing: Baseline 1 25-1 30, moderate variability, positive accelerations no decelerations, category 1 tracing Tocometer: Contractions every 2 minutes, oxytocin currently at 12 milliunits/h, IUPC in place Cervix: 3-4/60/-2 Results & Data Vital Signs (Past 12 Hours) Vital Signs Temp Pulse Resp BP Pulse Ox 07/18/23 12:39 98 07/18/23 12:39 63 07/18/23 12:39 69 129/82 07/18/23 12:34 65 135/67 97 07/18/23 12:29 69 97 07/18/23 12:28 72 132/81 07/18/23 12:27 65 137/84 07/18/23 12:24 67 98 07/18/23 12:23 63 129/79 07/18/23 12:21 70 127/74 07/18/23 12:19 72 136/81 98 07/18/23 12:17 67 120/63 07/18/23 12:14 73 97 07/18/23 12:13 68 138/77 07/18/23 12:11 78 135/71 07/18/23 12:09 82 100 07/18/23 12:08 78 143/86 H 07/18/23 12:04 89 99 07/18/23 11:59 81 95 07/18/23 11:58 99 H 94 07/18/23 11:54 61 97 07/18/23 11:49 63 98 07/18/23 11:44 62 97 07/18/23 11:38 65 124/77 07/18/23 11:09 63 120/74 07/18/23 10:45 36.8 C 07/18/23 10:39 63 131/87 07/18/23 10:08 73 124/85 07/18/23 09:38 64 128/83 07/18/23 09:08 67 127/83 07/18/23 08:21 88 132/79 07/18/23 08:16 36.8 C 88 16 132/79 Laboratory Results Laboratory Results WBC 11.68 K/ul (4.8-10.8) H 07/18/23 09:10 RBC 4.30 M/uL (4.20-5.40) 07/18/23 09:10 Hgb 11.8 g/dl (12.0-16.0) L 07/18/23 09:10 Hct 35.1 % (37.0-47.0) L 07/18/23 09:10 MCV 81.6 fL (80.0-100.0) 07/18/23 09:10 MCH 27.4 pg (25.0-34.0) 07/18/23 09:10 MCHC 33.6 g/dL (32.0-36.0) 07/18/23 09:10 RDW Std Deviation 37.1 fL (36.4-46.3) 07/18/23 09:10 RDW Coeff of Rob 12.5 % (11.5-14.5) 07/18/23 09:10 Plt Count 224 K/uL (130-400) 07/18/23 09:10 MPV 10.3 fL (9.4-12.4) 07/18/23 09:10 (4) Mild intermittent asthma Asthma complication type: uncomplicated Qualified Code(s): J45.20 - Mild intermittent asthma, uncomplicated
--- OUTSIDE RECORDS SUMMARY | 2023-07-18 15:43 | External Medical Summary | Summary of Care ---
Author Name Unknown Organization [facility] Address [address] [place] [address] Phone [phone] Care Team Providers Care Trim Stencil Maker Name Role Phone Unavailable Primary Care Provider Unavailabl e Reason for Visit * Reason Comments Return Visit Encounter Details Date Type Department Care Team (Late st Contact Info) Description 06/22/2023 11:30 AM EST Office Visit Gynecology/Obstetric s [facility] [address] [place] [address] Celina Cole CRNP [address] [place] [address] Normal in third trimester*; History of prior with IUGR ; History of depression, currently Allergies Active Allergy Reactions Criticality Noted Date Comments Adhesive Tape Rash Medium 11/09/2015 Blistered under Steri-strips on Day 2 after Nexplanon placement. documented as of this encounter (statuses as of 06/22/2023) Medications Medication Sig Dispensed Refills Start Date End Date Status 6.75-0.2 MG Oral Tablet Take by mouth. 0 Active Ondansetron 4 MG Oral Tablet Disintegrating (Zofran) Place 1 Tablet on tongue every 8 hours as needed for Nausea. dissolve on tongue. 30 Tablet 1 01/15/2023 Active Iron-Vitamin C 65-125 MG Oral Tablet (Vitron C) Take 1 Tablet by mouth in the morning. 30 Tablet 2 04/27/2023 Active documented as of this encounter (statuses as of 06/22/2023) Active Problems Problem Noted Date Diagnosed Date Normal 12/15/2022 History of prior with IUGR History of depression, currently preg nant 12/15/2022 Overview: No meds at time of NOB SHUBHAM (generalized anxiety disorder) 05/17/2022 anxiety 12/19/2021 Overview: Anxiety and depression primarily related to feeding issues . Depression screen 23, no thoughts of harm to self or others. 12/19 start Zoloft 25 mg Psychiatry referral depression 12/19/2021 Overview: Anxiety and depression . Depression screen 23, no thoughts of harm to self or others. 12/19 start Zoloft 25 mg Psychiatry referral Other seasonal allergic rhinitis 12/14/2014 History of allergy to latex 11/10/2014 Mild intermittent asthma with exacerbation 11/09 Allergic conjunctivitis 11/09/2014 Dyslipidemia, goal to be determined 11/15/2011 Syncope and collapse 11/15/2011 Allergic rhinitis 11/16/2008 Other acne 11/16/2008 Estimated Date of Delivery Comme nts Yes 07/16/2023 Based on last me nstrual period of 10/09/2022 (Exact Date) documented as of this encounter (statuses as of 06/22/2023) Resolved Problems Problem Noted Date Diagnosed Date Resolved Date Anxiety during 12/15/2022 IUGR (intrauterine growth re tardation) affecting mother 10/07/2021 12/19/2021 Overview: EWF 8th %ile at 35 weeks Last Assessment & Plan: Thank you for referring this patient for ultrasound to assess well being for growth restriction. Ultrasound images were reviewed. Interval assessment of anatomy is within normal limits. The fetus is active and the amniotic fluid is within normal limits. BPP is 8/8. Umbilical artery Doppler studies were performed and are within normal limits. Forward flow is seen throughout the cardiac cycle. We discussed the most common etiologies of FGR. Given two normal Doppler studies, patient is opting to skip next week's BPP and Doppler testing. She will be induced in two weeks and she is opting to continue the NSTs but not return for Doppler testing. We discussed movement counting. Low-lying placenta 06/27/2021 Overview: 1.3 cm from os at 28 weeks, recheck 35 wks - Recommend delivery for ALL previas (or low-lying placentas within 1cm of cervical os) between 36w0d to 37w6d without amniocentesis. - If the placental edge is at 1cm or greater from internal os (without vaginal bleeding) current evidence supports consideration for a trial labor and may continue to 41 weeks. Last Assessment & Plan: Resolved as of 35wk ultrasound. Supervision of high-risk pre gnancy, unspecified trimester 04/01/2021 12/19/2021 Maternal asthma complicating 04/01/2021 12/19/2021 Overview: No meds Last Assessment & Plan: Well-controlled without medication. Reports no recent rescue inhaler use. documented as of this encounter (statuses as of 06/22/2023) Immunizations Name Administration Dates Next Due HPV Vaccine, 4-Valent 05/28/2009,02/19/2009,10/2008 TDAP (age 10 and older)(Boostrix) 08/19/2021,05/2014 documented as of this encounter Social History Tobacco Use Types Packs/Day Years Used Date Smoking Tobacco: Former Cigarettes 0.1 1 0 04/23/2010 - 04/23/2011 Smokeless Tobacco: Never Comments:occasional cigarett e Alcohol Use Standard Drinks/Week Comments Not Currently 0 (1 standard drink = 0.6 oz pur e alcohol) occasionally PHQ-2 Answer Date Recorded PHQ-2 Score 0 11/14/2019 Hunger Vital Sign Answer Date Recorded Within the past 12 months, y ou worried that your food would run out before you got the money to buy more. Patient declined Within the past 12 months, t he food you bought just didn't last and you didn't have money to get more. Patient declined [place] Depression Scale Answer Date Recorded [place] Depression Scale Total 0 06/05/2023 The thought of harming myself has occurred to me . Never 06/05/2023 Estimated Date of Delivery Comme nts Yes 07/16/2023 Based on last me nstrual period of 10/09/2022 (Exact Date) Sex and Gender Information Value Date Recorded Sex Assigned at Female 11/30/2022 8:49 AM EDT Gender Identity Female 11/30/2022 8:49 AM EDT Sexual Orientation Straight 11/30/2022 8: 49 AM EDT Job Start Date Occupation Industry Not on file Not on file Not on file documented as of this encounter Last Filed Vital Signs Vital Sign Reading Time Taken Comments Blood Pressure 118/64 06/22/2023 11:34 AM EST Pulse - - Temperature - - Respiratory Rate - - Oxygen Saturation - - Inhaled Oxygen Concentration - - Weight 77.6 kg (171 lb) 06/22/2023 11:34 AM EST Height 160 cm (5' 3") 06/22/2023 11:34 AM EST Body Mass Index 30.29 06/22/2023 11:34 AM EST documented in this encounter Progress Notes * Celina Cole CRNP - 06/22/2023 11:47 AM EST 36w4d Feeling miserable. Having a lot of pelvic pressure and overall discomfort. Baby is active. No regular contractions or bleeding. GBS today. Desires cervical check. Processing Technician Documentation Provider requested warper tender. Name of warper tender: ROS Salter documented in this encounter Nursing Notes * Akanksha Lara LPN - 06/22/2023 11:33 AM EST 36w4d Needs gbs documented in this encounter Plan of Treatment Upcoming Encounters Date Type Department Care Team (Late st Contact Info) Description 06/29/2023 4:30 PM EST Office Visit Gynecology/Obstetrics Ethan Tian [address] [place] [address] Tita Burger PA-C [address] [place] [address] 07/04/2023 3:15 PM EDT Office Visit Gynecology/Obstetrics [facility] [address] [place] [address] Celina Cole CRNP [address] [place] [address] 07/13/2023 4:15 PM EDT Office Visit Gynecology/Obstetrics [facility] [place] [address] Sobeida Patel CN [address] [facility] [place] [address] Pending Results Name Type Priority Associated Diagnoses Date /Time GROUP B STREP CULTURE/PCR Lab Routine Normal in third trimester 06/22/2023 12:01 PM EST Scheduled Orders Name Type Priority Associated Diagnoses Orde r Schedule GROUP B STREP CULTURE/PCR Lab Routine Normal in third trimester Expected: 06/22/2023, Expires: 06/21/2024 Health Maintenance Due Date Last Done Comments Pneumococcal Vaccine: Pediatrics (0 to 5 Years) and At-Risk Patients (6 to 64 Years) (1 of 2 - PCV) 1998 Hepatitis B (1 of 3 - 19+ 3-dose series) 2011 Depression Screening 11/13/2020 11/14/2019 HPV/Co-Test 2022 COVID-19 Vaccine ( season) 2022 Influenza Vaccine (FLU shot) (#1) 2022 Cervical Cancer Screening 04/01/2024 Pap Smear 04/01/2024 04/01/2021, 01/21, 01/15/2015, Additional history exists DTaP,Tdap,and Td Vaccines (3 - Td or Tdap) 08/20/2031 08/19/2021, 09/22/2014 GARDASIL-HPV IMMUNIZATION SERIES Completed 05/28/2009, 02/19/2009, 11/27/2008 MENINGOCOCCAL (MENACTRA/MENVEO) Aged Out No longer eligible based on patient's age to complete this topic documented as of this encounter Medical Devices Not on filedocumented as of this encounter Visit Diagnoses Diagnosis Normal in third trimester- Primary History of prior with IUGR History of depression, currently with other poor obstetric history documented in this encounter
--- OUTSIDE RECORDS SUMMARY | 2023-07-18 15:43 | External Medical Summary | Summary of Care ---
Author Name Unknown Organization [facility] Address [address] [place] [address] Phone [phone] Care Team Providers Care Electrical Maintenance Mechanic Name Role Phone Unavailable Primary Care Provider Unavailabl e Encounter Details Date Type Department Care Team (Late st Contact Info) Description 07/10/2023 Telephone Gynecology/Obstetrics Thorn[facility]olas Tian [address] [place] [address] Celina Cole CRNP [address] [place] [address] Allergies Active Allergy Reactions Criticality Noted Date Comments Adhesive Tape Rash Medium 11/09/2015 Blistered under Steri-strips on Day 2 after Nexplanon placement. documented as of this encounter (statuses as of 07/10/2023) Medications Medication Sig Dispensed Refills Start Date End Date Status 6.75-0.2 MG Oral Tablet Take by mouth. 0 Active Ondansetron 4 MG Oral Tablet Disintegrating (Zofran) Place 1 Tablet on tongue every 8 hours as needed for Nausea. dissolve on tongue. 30 Tablet 1 01/15/2023 Active Additional Information Patient not taking.Reported on 06/29/2023 Iron-Vitamin C 65-125 MG Oral Tablet (Vitron C) Take 1 Tablet by mouth in the morning. 30 Tablet 2 04/27/2023 Active PriLOSEC 10 MG Oral Packet (Omeprazole Magnesium) Take 20 mg by mouth in the morning and 20 mg before bedtime. 0 Active documented as of this encounter (statuses as of 07/10/2023) Active Problems Problem Noted Date Diagnosed Date [...] as of this encounter (statuses as of 07/10/2023) Resolved Problems Problem Noted Date Diagnosed Date [...] as of this encounter (statuses as of 07/10/2023) Immunizations Name Administration Dates Next Due HPV [...] have money to get more. Patient declined [place] Depression Scale Answer Date Recorded [place] Depression Scale Total 0 06/05/2023 The thought [...] on file documented as of this encounter Miscellaneous Notes * Telephone Encounter - Akanksha Lara LPN - 07/10/2023 11:26 AM EDT L&D called asking for us to call pt to let her know she needs to call L&D at 11am on 07/18/23 instead of 6am due to they needed to add a csection onto their schedule. Spoke with pt she verbalized understanding documented in this encounter Plan of Treatment Upcoming Encounters Date Type Department Care Team (Late st Contact Info) Description 07/13/2023 4:15 PM EDT Office Visit Gynecology/Obstetrics [facility] [address] [facility] [place] [address] Sobeida Patel, [address] [place] [address] Health Maintenance Due Date Last Done Comments Pneumococcal Vaccine: Pediatrics (0 to 5 Years) and At-Risk Patients (6 to 64 Years) (1 of 2 - PCV) 1998 Hepatitis B (1 of 3 - 19+ 3-dose series) 2011 Depression Screening 11/13/2020 11/14/2019 HPV/Co-Test 2022 COVID-19 Vaccine (1 - season) 2022 Influenza Vaccine (FLU shot) (#1) [...]
--- OUTSIDE RECORDS SUMMARY | 2023-07-18 15:43 | External Medical Summary | Summary of Care ---
Author Name Unknown Organization [facility] Address [address] [place] [address] Phone [phone] Care Team Providers Care User Experience Designer Name Role Phone Unavailable Primary Care Provider Unavailabl e Reason for Visit * Reason Comments Return Visit Encounter Details Date Type Department Care Team (Late st Contact Info) Description 07/04/2023 3:15 PM EDT Office Visit Gynecology/Obstetric s Ethan Tian [address] [place] [address] Celina Cole CRNP [address] [facility] [place] [address] Normal in third trimester*; History of prior with IUGR ; History of depression, currently Allergies Active Allergy Reactions Criticality Noted Date Comments Adhesive Tape Rash Medium 11/09/2015 Blistered under Steri-strips on Day 2 after Nexplanon placement. documented as of this encounter (statuses as of 07/04/2023) Medications Medication Sig Dispensed Refills Start Date [...] as of this encounter (statuses as of 07/04/2023) Active Problems Problem Noted Date Diagnosed Date Normal 12/15/2022 History of prior with IUGR History of depression, currently preg nant 12/15/2022 Overview: No meds at time of NOB HSUBHAM (generalized anxiety disorder) 05/17/2022 anxiety 12/19/2021 Overview: [...] as of this encounter (statuses as of 07/04/2023) Resolved Problems Problem Noted Date Diagnosed Date [...] as of this encounter (statuses as of 07/04/2023) Immunizations Name Administration Dates Next Due HPV Vaccine, 4-Valent 05/28/2009,02/19/2009,0810/2008 TDAP (age 10 and older)(Boostrix) 08/19/2021,05/2014 documented [...] have money to get more. Patient declined [place] Depression Scale Answer Date Recorded [place] Depression Scale Total 0 06/05/2023 The thought [...] Sign Reading Time Taken Comments Blood Pressure 132/86 07/04/2023 3:22 PM EDT Pulse - - Temperature - - Respiratory Rate - - Oxygen Saturation - - Inhaled Oxygen Concentration - - Weight 78.5 kg (173 lb) 07/04/2023 3:22 PM EDT Height 160 cm (5' 3") 07/04/2023 3:22 PM EDT Body Mass Index 30.65 07/04/2023 3:22 PM EDT documented in this encounter Progress Notes * Celina Cole CRNP - 07/04/2023 3:55 PM EDT 38w2d Not feeling well today. Overall not well, feeling anxious. Didn't sleep well last night- son was upovernight and she didn't fall back to sleep. BP elevated initially, but repeat was WNL, back to her baseline. Urine dip today, WNL Baby is moving less than he used to, but still adequate movement. No bleeding or LOF. Some low belly contractions. Encouraged to call if not feeling well tomorrow. By end of visit seemed calmer than when she arrived. IOL scheduled for 07/17. Agronomy Specialist Documentation Provider requested oil pipe inspector. Name of oil pipe inspector: ROS Salter * Akanksha Lara LPN - 07/04/2023 3:22 PM EDT 38w2d Would like cervix checked documented in this encounter Plan of Treatment Upcoming Encounters Date Type Department Care Team (Late st Contact Info) Description 07/13/2023 4:15 PM EDT Office Visit Gynecology/Obstetrics [facility] [address] [place] [address] Sobeida Patel CNM [address] [place] [address] Health Maintenance Due Date Last Done Comments [...]
--- OUTSIDE RECORDS SUMMARY | 2023-07-18 15:43 | External Medical Summary | Summary of Care ---
Author Name Unknown Organization [facility] Address [address] [place] [address] Phone [phone] Care Team Providers Care Vice President Regulatory Name Role Phone Unavailable Primary Care Provider Unavailabl e Reason for Visit * Reason Comments Return Visit Encounter Details Date Type Department Care Team (Late st Contact Info) Description 07/13/2023 4:15 PM EDT Office Visit Gynecology/Obstetric s [facility] [address] [facility] [place] [address] Sobeida Patel, [facility] [address] [facility] [place] [phone] Normal in third trimester*; History of prior with IUGR ; History of depression, currently Allergies Active Allergy Reactions Criticality Noted Date Comments Adhesive Tape Rash Medium 11/09/2015 Blistered under Steri-strips on Day 2 after Nexplanon placement. documented as of this encounter (statuses as of 07/13/2023) Medications Medication Sig Dispensed Refills Start Date [...] as of this encounter (statuses as of 07/13/2023) Active Problems Problem Noted Date Diagnosed Date [...] as of this encounter (statuses as of 07/13/2023) Resolved Problems Problem Noted Date Diagnosed Date [...] as of this encounter (statuses as of 07/13/2023) Immunizations Name Administration Dates Next Due HPV Vaccine, 4-Valent 05/28/2009,02/19/2009,080 10/2008 TDAP (age 10 and older)(Boostrix) 08/19/2021,05/2014 documented [...] have money to get more. Patient declined [place] Depression Scale Answer Date Recorded [place] Depression Scale Total 0 06/05/2023 The thought [...] Sign Reading Time Taken Comments Blood Pressure 124/84 07/13/2023 4:24 PM EDT Pulse - - Temperature - - Respiratory Rate - - Oxygen Saturation - - Inhaled Oxygen Concentration - - Weight 78.5 kg (173 lb) 07/13/2023 4:24 PM EDT Height - - Body Mass Index 30.65 07/04/2023 3:22 PM EDT documented in this encounter Progress Notes * Sobeida Patel CNM - 07/13/2023 4:39 PM EDT Alyssa Santa Kee is a 33 year old female here for her routine OB appointment at 39w4d Her Estimated Date of Delivery: 07/16/23 REVIEW OF SYSTEMS: She affirms movement. States that baby's movements have been smaller but the same in number. Still feeling 10 movements in 2 hours. Doing regular kick counts. Denies vaginal bleeding, LOF, N/V, headaches, vision changes, and RUQ pain. Occasional contractionsbut no consistent pattern. PHYSICAL EXAM: Filed Vitals: 07/13/23 1624 BP: 124/84 Weight: 78.5 kg (173 lb) +FHT 115-125bpm Fundal height: 39cm Cervix: 1cm/50%/-3, membrane sweep performed per patient request Geriatric Personal Care Aide Documentation Provider requested inspector rag sorting. Name of inspector rag sorting: Alyssa Yeung LPN ASSESSMENT/PLAN: (Z87.59) History of prior with IUGR Plan: -Baby measuring 51st percentile on 05/22/23 (O99.891, Z86.59) History of depression, currently (Z34.90) Normal (primary encounter diagnosis) Plan: -offered NST due to concern for decreased movement or smaller movement; patient politely declined. Reviewed kick counts in detail and encouraged patient to call with concerns. - labor precautions and kick counts reviewed -Elective IOL scheduled for 07/18/23 at [facility]. Patient aware that her upcoming induction is elective.Aware of the recommendation to deliver by 42 weeks. Sobeida Patel CNM documented in this encounter Plan of Treatment Health Maintenance Due Date Last Done Comments [...]
--- OUTSIDE RECORDS SUMMARY | 2023-07-18 15:43 | External Medical Summary | Summary of Care ---
Author Name Unknown Organization [facility] Address [address] [place] [address] Phone [phone] Care Team Providers Care Loftsman Name Role Phone Unavailable Primary Care Provider Unavailabl e Reason for Visit * Reason Comments Return Visit Encounter Details Date Type Department Care Team (Late st Contact Info) Description 06/29/2023 4:30 PM EST Office Visit Gynecology/Obstetric s Ethan Tian [address] [place] [address] Tita Burger PA-C [address] [place] [address] Normal in third trimester*; History of prior with IUGR ; History of depression, currently Allergies Active Allergy Reactions Criticality Noted Date Comments Adhesive Tape Rash Medium 11/09/2015 Blistered under Steri-strips on Day 2 after Nexplanon placement. documented as of this encounter (statuses as of 06/29/2023) Medications Medication Sig Dispensed Refills Start Date [...] as of this encounter (statuses as of 06/29/2023) Active Problems Problem Noted Date Diagnosed Date [...] as of this encounter (statuses as of 06/29/2023) Resolved Problems Problem Noted Date Diagnosed Date [...] as of this encounter (statuses as of 06/29/2023) Immunizations Name Administration Dates Next Due HPV [...] have money to get more. Patient declined [place] Depression Scale Answer Date Recorded [place] Depression Scale Total 0 06/05/2023 The thought [...] Sign Reading Time Taken Comments Blood Pressure 118/62 06/29/2023 4:18 PM EST Pulse - - Temperature - - Respiratory Rate - - Oxygen Saturation - - Inhaled Oxygen Concentration - - Weight 78 kg (172 lb) 06/29/2023 4:18 PM EST Height - - Body Mass Index 30.47 06/22/2023 11:34 AM EST documented in this encounter Progress Notes * Tita Burger PA-C - 06/29/2023 4:31 PM EST 37w4d Still pretty miserable she states. Increase at heartburn at bedtime. Taking Prilosec in AM, advisedadding Pepcid at bedtime. Denies contraction, LOF, VB. Pos FM. RTC in 1 week Tita Burger PA-C * Alyssa Yeung LPN - 06/29/2023 4:18 PM EST Pt is currently 37w4d with an Estimated Date of Delivery: 07/16/23 - documented in this encounter Plan of Treatment Upcoming Encounters Date Type Department Care Team (Late st Contact Info) Description 07/04/2023 3:15 PM EDT Office Visit Gynecology/Obstetrics [facility] [address] [place] [address] Celina Cole CRNP [address] [place] [address] 07/13/2023 4:15 PM EDT Office Visit Gynecology[facility]stetric[facility] [address] [place] [address] Sobeida Patel CNM [address] [facility] [place] [address] Health Maintenance Due Date Last Done Comments Pneumococcal Vaccine: Pediatrics (0 to 5 Years) and At-Risk Patients (6 to 64 Years) (1 of 2 - PCV) 1998 Hepatitis B (1 of 3 - 19+ 3-dose series) 2011 Depression Screening 11/13/2020 11/14/2019 HPV/Co-Test 2022 COVID-19 Vaccine ( - season) 2022 Influenza Vaccine (FLU shot) [...]
--- OUTSIDE RECORDS SUMMARY | 2023-07-18 15:43 | External Medical Summary | Summary of Care ---
Author Name Unknown Organization [facility] Address [address] [place] [address] Phone [phone] Care Team Providers Care Watch Repair Technician Name Role Phone Unavailable Primary Care Provider Unavailabl e Reason for Visit * Reason Comments Return Visit Encounter Details Date Type Department Care Team (Late st Contact Info) Description 06/22/2023 11:30 AM EST Office Visit Gynecology/Obstetric s [facility] [address] [place] [address] Celina Cole CRNP [address] [place] [address] Normal in third trimester*; History of prior [...] have money to get more. Patient declined [place] Depression Scale Answer Date Recorded [place] Depression Scale Total 0 06/05/2023 The thought [...] or bleeding. GBS today. Desires cervical check. Iron Pourer Documentation Provider requested study abroad advisor. Name of study abroad advisor: ROS Salter documented in this encounter Nursing Notes * Akanksha Lara LPN - 06/22/2023 11:33 AM EST 36w4d Needs gbs documented in this encounter Plan of Treatment Upcoming Encounters Date Type Department Care Team (Late st Contact Info) Description 06/29/2023 4:30 PM EST Office Visit Gynecology/Obstetrics Ethan Tian [address] [place] [address] Tita Burger PA-C [address] [place] [address] 07/04/2023 3:15 PM EDT Office Visit Gynecology/Obstetrics [facility] [address] [place] [address] Celina Cole CRNP [address] [place] [address] 07/13/2023 4:15 PM EDT Office Visit Gynecology/Obstetrics [facility] [place] [address] Sobeida Patel CN 400 [facility] [place] [address] Pending Results Name Type Priority Associated Diagnoses [...]
--- OUTSIDE RECORDS SUMMARY | 2023-07-18 15:43 | External Medical Summary | Summary of Care ---
Author Name Unknown Organization [facility] Address [address] [place] [address] Phone [phone] Care Team Providers Care Creative Technologist Name Role Phone Unavailable Primary Care Provider Unavailabl e Reason for Visit * Reason Comments Return Visit Encounter Details Date Type Department Care Team (Late st Contact Info) Description 07/13/2023 4:15 PM EDT Office Visit Gynecology/Obstetric s [facility] [address] [facility] [place] [address] Sobeida Patel, [facility] [address] [facility] [place] [phone] Normal in third trimester*; History of prior [...] have money to get more. Patient declined [place] Depression Scale Answer Date Recorded [place] Depression Scale Total 0 06/05/2023 The thought [...] 1cm/50%/-3, membrane sweep performed per patient request Medical Administrative Documentation Provider requested maintenance of way supervisor. Name of maintenance of way supervisor: Alyssa Yeung LPN ASSESSMENT/PLAN: (Z87.59) History of [...] reviewed -Elective IOL scheduled for 07/18/23 at [facility]. Patient aware that her upcoming induction is [...]
--- OUTSIDE RECORDS SUMMARY | 2023-07-18 15:44 | External Medical Summary ---
Author Name Unknown Address Unknown Organization [id number]:[facility] [place] [address] - [address] [facility] [place] [address] Laboratory Report Ordering Provider Test Date Status ROLANDA CABRERA 05/22/2023 08:53:00 Final Observation Date Value Abnormality Reference (Units ) Status SYNC LEUKOCYTES IN BLOOD BY AUTOMATED COUNT 05/22/2023 08:53:00 9.76 4.00-10.80 (K/uL) Final Segs 05/22/2023 08:53:00 67.6 40.0-75.0 (%) Final Lymphs % 05/22/2023 08:53:00 22.5 18.0-42.0 (%) Final Monos 05/22/2023 08:53:00 9.0 1.0-11.0 (%) Final Eosinophils 05/22/2023 08:53:00 0.7 0.0-6.0 (%) Final Basos 05/22/2023 08:53:00 0.2 0.0-2.0 (%) Final Absolute Segs 05/22/2023 08:53:00 6.59 1.80-7.70 (K/uL) Final Lymphs, absolute 05/22/2023 08:53:00 2.20 1.00-4.80 (K/ul) Final Monos, Abs 05/22/2023 08:53:00 0.88 0.00-1.10 (K/uL) Final Eos, Abs 05/22/2023 08:53:00 0.07 0.00-0.70 (K/uL) Final Basos, Abs 05/22/2023 08:53:00 0.02 0.00-0.20 (K/uL) Final Performing Location [facility] - [address] [facility] [place] [address]
--- OUTSIDE RECORDS SUMMARY | 2023-07-18 15:44 | External Medical Summary | Summary of Care ---
Author Name Unknown Organization [facility] Address [address] [place] [address] Phone [phone] Care Team Providers Care Security Control Assessor Name Role Phone Unavailable Primary Care Provider Unavailabl e Reason for Visit * Reason Comments Outpatient Testing Encounter Details Date Type Department Care Team (Late st Contact Info) Description 05/22/2023 9:50 AM EST Laboratory Laboratory, [facility] [address] [place] [id number] [facility] [address] [place] [address] Arrived Allergies Active Allergy Reactions Criticality Noted Date Comments Adhesive Tape Rash Medium 11/09/2015 Blistered under Steri-strips on Day 2 after Nexplanon placement. documented as of this encounter (statuses as of 05/22/2023) Medications Medication Sig Dispensed Refills Start Date [...] as of this encounter (statuses as of 05/22/2023) Active Problems Problem Noted Date Diagnosed Date [...] as of this encounter (statuses as of 05/22/2023) Resolved Problems Problem Noted Date Diagnosed Date [...] We discussed movement counting. Low-lying placenta 06/27/2021 08/29/202 2 Overview: 1.3 cm from os at 28 [...] as of this encounter (statuses as of 05/22/2023) Immunizations Name Administration Dates Next Due HPV [...] got the money to buy more. Patient refused Within the past 12 months, t he food you bought just didn't last and you didn't have money to get more. Patient refused [place] Depression Scale Answer Date Recorded [place] Depression Scale Total 0 12/15/2022 The thought of harming myself has occurred to me . Never 12/15/2022 Estimated Date of Delivery Comme nts Yes [...] on file documented as of this encounter Plan of Treatment Upcoming Encounters Date Type Department Care Team (Late st Contact Info) Description 06/05/2023 8:15 AM EST Office Visit Gynecology/Obstetrics Ethan Tian [address] [place] [address] Celina Cole CRNP [address] [place] [address] Health Maintenance Due Date Last Done Comments Hepatitis B (1 of 3 - 3-dose series) 1992 COVID-19 Vaccine (#1) 1992 Pneumococcal Vaccine: Pediatrics (0 to 5 Years) and At-Risk Patients (6 to 64 Years) (1 - PCV) 1998 Depression Screening 11/13/2020 11/14/2019 HPV/Co-Test 2022 Influenza Vaccine (FLU shot) (#1) 2022 [...]
--- OUTSIDE RECORDS SUMMARY | 2023-07-18 15:44 | External Medical Summary | Summary of Care ---
Author Name Unknown Organization [facility] Address [address] [place] [address] Phone [phone] Care Team Providers Care Content Assistant Name Role Phone Unavailable Primary Care Provider Unavailabl e Reason for Visit * Reason Comments Return Visit Encounter Details Date Type Department Care Team (Late st Contact Info) Description 05/22/2023 8:15 AM EST Office Visit Gynecology/Obstetric s ThorneMatildawong Tian [address] [place] [address] Celina Cole CRNP [address] [facility] [place] [address] Normal in third trimester*; History of prior [...] have money to get more. Patient refused [place] Depression Scale Answer Date Recorded [place] Depression Scale Total 0 12/15/2022 The thought [...] Sign Reading Time Taken Comments Blood Pressure 110/62 05/22/2023 8:02 AM EST Pulse - - Temperature - - Respiratory Rate - - Oxygen Saturation - - Inhaled Oxygen Concentration - - Weight 74.8 kg (165 lb) 05/22/2023 8:02 AM EST Height 160 cm (5' 3") 05/22/2023 8:02 AM EST Body Mass Index 29.23 05/22/2023 8:02 AM EST documented in this encounter Progress Notes * Celina Cole CRNP - 05/22/2023 8:22 AM EST 32w1d No concerns. Baby is active. No contractions or bleeding. Taking iron most days. CBC today. Growth u/s, 51st percentile. ROS Martin * Akanksha Lara LPN - 05/22/2023 8:02 AM EST 32w1d Growth US 1960gm 51% 17.3 ESTHER documented in this encounter Plan of Treatment Upcoming Encounters Date Type Department Care Team (Late st Contact Info) Description 06/05/2023 8:15 AM EST [facility] [address] [place] [address] Celina Cole CRNP [address] [place] [address] Scheduled Orders Name Type Priority Associated Diagnoses Orde r Schedule CBC WITH WBC DIFFERENTIAL Lab Routine Normal in third trimester Ordered: 05/22/2023 Health Maintenance Due Date Last Done Comments [...]
--- OUTSIDE RECORDS SUMMARY | 2023-07-18 15:44 | External Medical Summary ---
Author Name Unknown Address Unknown Organization K0G:[facility] [place] [address] - [address] [facility] [place] [address] Laboratory Report Ordering Provider Test Date Status BRENTON KNUTSON 04/27/2023 11:32:09 Final Observation Date Value Abnormality Reference (Units ) Status SYNC LEUKOCYTES IN BLOOD BY AUTOMATED COUNT 04/27/2023 11:32:09 9.36 4.00-10.80 (K/uL) Final Segs 04/27/2023 11:32:09 71.2 40.0-75.0 (%) Final Lymphs % 04/27/2023 11:32:09 20.1 18.0-42.0 (%) Final Monos 04/27/2023 11:32:09 7.9 1.0-11.0 (%) Final Eosinophils 04/27/2023 11:32:09 0.7 0.0-6.0 (%) Final Basos 04/27/2023 11:32:09 0.1 0.0-2.0 (%) Final Absolute Segs 04/27/2023 11:32:09 6.66 1.80-7.70 (K/uL) Final Lymphs, absolute 04/27/2023 11:32:09 1.88 1.00-4.80 (K/ul) Final Monos, Abs 04/27/2023 11:32:09 0.74 0.00-1.10 (K/uL) Final Eos, Abs 04/27/2023 11:32:09 0.07 0.00-0.70 (K/uL) Final Basos, Abs 04/27/2023 11:32:09 0.01 0.00-0.20 (K/uL) Final Performing Location [facility] [address] - [address] [facility] [place] [address]
--- OUTSIDE RECORDS SUMMARY | 2023-07-18 15:44 | External Medical Summary | Summary of Care ---
Author Name Unknown Organization [facility] Address [address] [place] [address] Phone [phone] Care Team Providers Care Equipment Services Associate Name Role Phone Unavailable Primary Care Provider Unavailabl e Reason for Visit * Reason Comments Return Visit Encounter Details Date Type Department Care Team (Late st Contact Info) Description 04/06/2023 11:30 AM EST Office Visit Gynecology/Obstetric s Ethan Tian [address] [place] [address] Tita Burger PA-C [address] [place] [address] Normal in second trimester*; History of prior with IUGR ; History of depression, currently Allergies Active Allergy Reactions Criticality Noted Date Comments Adhesive Tape Rash Medium 11/09/2015 Blistered under Steri-strips on Day 2 after Nexplanon placement. documented as of this encounter (statuses as of 04/06/2023) Medications Medication Sig Dispensed Refills Start Date End Date Status 6.75-0.2 MG Oral Tablet Take by mouth. 0 Active Ondansetron 4 MG Oral Tablet Disintegrating (Zofran) Place 1 Tablet on tongue every 8 hours as needed for Nausea. dissolve on tongue. 30 Tablet 1 01/15/2023 Active documented as of this encounter (statuses as of 04/06/2023) Active Problems Problem Noted Date Diagnosed Date [...] as of this encounter (statuses as of 04/06/2023) Resolved Problems Problem Noted Date Diagnosed Date [...] as of this encounter (statuses as of 04/06/2023) Immunizations Name Administration Dates Next Due HPV [...] have money to get more. Patient refused [place] Depression Scale Answer Date Recorded [place] Depression Scale Total 0 12/15/2022 The thought [...] Sign Reading Time Taken Comments Blood Pressure 108/76 04/06/2023 11:28 AM EST Pulse - - Temperature - - Respiratory Rate - - Oxygen Saturation - - Inhaled Oxygen Concentration - - Weight 72.1 kg (159 lb) 04/06/2023 11:28 AM EST Height 160 cm (5' 3") 04/06/2023 11:28 AM EST Body Mass Index 28.17 04/06/2023 11:28 AM EST documented in this encounter Progress Notes * Tita Burger PA-C - 04/06/2023 11:35 AM EST 25w4d Having some pulling muscle pain along top of belly after days end. Better in the morning. Had similar discomfort last , bought belly support band. She does have and has been using at times. Also with heartburn, TUMS not always helpful. Discussed Pepcid 20 mg daily. Missed anatomy complete. Denies bleeding, leaking, contractions. Pos FM. Reviewed third tri labs and TDaP with next visit RTC in 3 weeks Tita Burger PA-C * Tonja Mancera LPN - 04/06/2023 11:32 AM EST 25w4d Pain across upper belly. documented in this encounter Plan of Treatment Upcoming Encounters Date Type Department Care Team (Late st Contact Info) Description 04/27/2023 10:30 AM EST Laboratory Laboratory, [address] [place] [address] Jennifer Tians [address] [place] [address] 04/27/2023 10:45 AM EST Office Visit Gynecology/Obstetrics Ethan Tian [address] [place] [address] Celina Cole CRNP [address] [place] [address] Scheduled Orders Name Type Priority Associated Diagnoses Orde r Schedule 50-G GESTATIONAL GLUCOSE, 1 HOUR Lab Routine Normal in second trimester Expected: 04/20/2023 (Approximate), Expires: 04/06/2024 CBC WITH WBC DIFFERENTIAL AND ANEMIA REFLEX WORKUP Lab Routine Normal in second trimester Expected: 04/20/2023 (Approximate), Expires: 04/06/2024 SYPHILIS ANTIBODY SCREEN WITH REFLEX TO RPR Lab Routine Normal in second trimester Expected: 04/20/2023 (Approximate), Expires: 04/06/2024 Health Maintenance Due Date Last Done Comments [...] this encounter Visit Diagnoses Diagnosis Normal in second trimester- Primary History of prior with IUGR History of depression, currently with other poor obstetric history documented in this encounter
--- OUTSIDE RECORDS SUMMARY | 2023-07-18 15:44 | External Medical Summary ---
Author Name Unknown Address Unknown Organization [id number]:[facility] [place] - [address] [place] [address] Laboratory Report Ordering Provider Test Date Status ZENIABRENTON 04/27/2023 11:32:09 Final Observation Date Value Abnormality Reference (Units ) Status Iron 04/27/2023 11:32:09 61 33-151 (ug/dL) Final Iron-binding capacity 04/27/2023 11:32:09 466 Above high normal 250-425 (ug/dL) Final Transferrin Sat % 04/27/2023 11:32:09 13 Below low normal 15-55 (%) Final Performing Location [facility] - [address] [place] [address]
--- OUTSIDE RECORDS SUMMARY | 2023-07-18 15:44 | External Medical Summary ---
Author Name Unknown Address Unknown Organization [id number][facility] [place] [address] [facility] [address] Laboratory Report Ordering Provider Test Date Status BRENTON KNUTSON 04/27/2023 11:32:09 Final Observation Date Value Abnormality Reference (Units ) Status Retic, % (auto) 04/27/2023 11:32:09 1.53 0.80-1.90 (%) Final Reticulocytes, Absolute 04/27/2023 11:32:09 61.0 31.3-100.1 (K/uL) Final Reticulocyte fraction, immature 04/27/2023 11:32:09 15.2 2.5-20.6 (%) Final Reticulocyte HGB 04/27/2023 11:32:09 32.5 29.7-37.4 (pg) Final Performing Location [facility] [place] [address] [facility] [address]
--- OUTSIDE RECORDS SUMMARY | 2023-07-18 15:44 | External Medical Summary | Summary of Care ---
Author Name Unknown Organization [facility] Address [address] [place] [address] Phone [phone] Care Team Providers Care Vocational Horticulture Instructor Name Role Phone Unavailable Primary Care Provider Unavailabl e Reason for Visit * Reason Comments Return Visit Encounter Details Date Type Department Care Team (Late st Contact Info) Description 06/05/2023 8:15 AM EST Office Visit Gynecology/Obstetric s [place]orne[place]ild[place]ong Tian [address] [place] [address] Celina Cole CRNP [address] [place] [address] Normal in third trimester*; History of prior with IUGR ; History of depression, currently Allergies Active Allergy Reactions Criticality Noted Date Comments Adhesive Tape Rash Medium 11/09/2015 Blistered under Steri-strips on Day 2 after Nexplanon placement. documented as of this encounter (statuses as of 06/05/2023) Medications Medication Sig Dispensed Refills Start Date [...] as of this encounter (statuses as of 06/05/2023) Active Problems Problem Noted Date Diagnosed Date [...] as of this encounter (statuses as of 06/05/2023) Resolved Problems Problem Noted Date Diagnosed Date [...] as of this encounter (statuses as of 06/05/2023) Immunizations Name Administration Dates Next Due HPV [...] have money to get more. Patient refused [place] Depression Scale Answer Date Recorded [place] Depression Scale Total 0 06/05/2023 The thought [...] Sign Reading Time Taken Comments Blood Pressure 126/76 06/05/2023 8:10 AM EST Pulse - - Temperature - - Respiratory Rate - - Oxygen Saturation - - Inhaled Oxygen Concentration - - Weight 75.8 kg (167 lb) 06/05/2023 8:10 AM EST Height 160 cm (5' 3") 06/05/2023 8:10 AM EST Body Mass Index 29.58 06/05/2023 8:10 AM EST documented in this encounter Progress Notes * Celina Cole CRNP - 06/05/2023 8:32 AM EST 34w1d No concerns. Baby is active. No contractions, bleeding, or LOF. GBS next visit. ROS Martin documented in this encounter Plan of Treatment Upcoming Encounters Date Type Department Care Team (Late st Contact Info) Description 06/22/2023 11:15 AM EST Office Visit Gynecology/Obstetrics [facility] [address] [place] [address] Celina Cole CRNP [address] [place] [address] 06/29/2023 4:30 PM EST Office Visit Gynecology/Obstetrics [facility] [address] [place] [address] Tita Burger PA-C [address] [place] [address] 07/04/2023 3:15 PM EDT Office Visit Gynecology/Obstetrics [facility] [address] [facility] [place] [address] Celina Cole CRNP [address] [place] [address] 07/13/2023 4:15 PM EDT Office Visit Gynecology/Obstetrics [facility] [address] [facility] [place] [address] Sobeida Paetl, JAYLEN [address] [facility] [place] [address] Health Maintenance Due Date Last Done Comments [...]
--- OUTSIDE RECORDS SUMMARY | 2023-07-18 15:44 | External Medical Summary | Summary of Care ---
Author Name Unknown Organization [facility] Address [address] [place] [address] Phone [phone] Care Team Providers Care Notching Press Operator Name Role Phone Unavailable Primary Care Provider Unavailabl e Reason for Visit * Reason Comments Outpatient Testing Encounter Details Date Type Department Care Team (Late st Contact Info) Description 04/27/2023 10:30 AM EST Laboratory Laboratory, [facility] [address] [place] [address] [facility] [address] [place] [address] Normal in second trimester Allergies Active Allergy Reactions Criticality Noted Date Comments Adhesive Tape Rash Medium 11/09/2015 Blistered under Steri-strips on Day 2 after Nexplanon placement. documented as of this encounter (statuses as of 04/27/2023) Medications Medication Sig Dispensed Refills Start Date End Date Status 6.75-0.2 MG Oral Tablet Take by mouth. 0 Active Ondansetron 4 MG Oral Tablet Disintegrating (Zofran) Place 1 Tablet on tongue every 8 hours as needed for Nausea. dissolve on tongue. 30 Tablet 1 01/15/2023 Active documented as of this encounter (statuses as of 04/27/2023) Active Problems Problem Noted Date Diagnosed Date [...] as of this encounter (statuses as of 04/27/2023) Resolved Problems Problem Noted Date Diagnosed Date [...] as of this encounter (statuses as of 04/27/2023) Immunizations Name Administration Dates Next Due HPV [...] have money to get more. Patient refused [place] Depression Scale Answer Date Recorded [place] Depression Scale Total 0 12/15/2022 The thought [...] Care Team (Late st Contact Info) Description 05/11/2023 8:45 AM EST Office Visit Gynecology/Obstetrics [facility] [address] [place] [address] Celina Cole CRNP [address] [place] [address] 05/22/2023 7:30 AM EST Imaging Radiology [facility] [address] [place] [address] 05/22/2023 8:15 AM EST Office Visit Gynecology/Obstetrics [facility] [address] [place] [address] Celina Cole CRNP [address] [place] [address] Pending Results Name Type Priority Associated Diagnoses Date /Time 50-G GESTATIONAL GLUCOSE, 1 HOUR Lab Routine Normal in second trimester 04/27/2023 11:32 AM EST CBC WITH WBC DIFFERENTIAL AND ANEMIA REFLEX WORKUP Lab Routine Normal in second trimester 04/27/2023 11:32 AM EST SYPHILIS ANTIBODY SCREEN WITH REFLEX TO RPR Lab Routine Normal in second trimester 04/27/2023 11:32 AM EST ANEMIA CBC Lab Routine Normal in second trimester 04/27/2023 11:32 AM EST DIFFERENTIAL, AUTOMATED Lab Routine Normal in second trimester 04/27/2023 11:32 AM EST ANEMIA REFLEX CHEMISTRY HOLD Lab Routine Normal in second trimester 04/27/2023 11:32 AM EST SYPHILIS ANTIBODY SCREEN Lab Routine Normal in second trimester 04/27/2023 11:32 AM EST Health Maintenance Due Date Last Done Comments [...] encounter Visit Diagnoses Diagnosis Normal in second trimester documented in this encounter
--- OUTSIDE RECORDS SUMMARY | 2023-07-18 15:44 | External Medical Summary ---
Author Name Unknown Address Unknown Organization [id number]:LAB[facility]ATORY [facility] [place] - [address] [place] [address] Laboratory Report Ordering Provider Test Date Status BRENTON KNUTSON 04/27/2023 11:32:09 Final Observation Date Value Abnormality Reference (Units ) Status Treponema pallidum Ab [Presence] in Serum by Immunoassay 04/27/2023 11:32:09 Nonreactive Nonreactive Final No serologic evidence of syp hilis. No additional testing clinicially indicated at this time. Consider repeat testing in 2-4 weeks if acute or primary syphilis is suspected. Performing Location LAB[facility]ORY [facility] [place] - [address] [place] [address]
--- OUTSIDE RECORDS SUMMARY | 2023-07-18 15:44 | External Medical Summary ---
Author Name Unknown Address Unknown Organization [id number]:[facility]ORY [facility] [place] - [address] [place] [address] Laboratory Report Ordering Provider Test Date Status BRENTON KNUTSON 04/27/2023 11:32:09 Final Observation Date Value Abnormality Reference (Units ) Status Creatinine 04/27/2023 11:32:09 0.6 0.5-1.0 (mg/dL) Final Glomerular filtration rate/1.73 sq M.predicted [Volume Rate/Area] in Serum, Plasma or Blood by Creatinine-based formula (CKD-EPI) 04/27/2023 11:32:09 >90 >=60 (mL/min) Final eGFR is calculated based on the CKD-EPI 2020 equation Performing Location [facility]ATORY [facility] [place] - [address] [place] [address]
--- OUTSIDE RECORDS SUMMARY | 2023-07-18 15:44 | External Medical Summary | Summary of Care ---
Author Name Unknown Organization [facility] Address [address] [place] [address] Phone [phone] Care Team Providers Care Community Leader Name Role Phone Unavailable Primary Care Provider Unavailabl e Reason for Visit * Reason Comments Return Visit Encounter Details Date Type Department Care Team (Late st Contact Info) Description 05/11/2023 8:45 AM EST Office Visit Gynecology/Obstetric s Thorne[place]ong Tian [address] [place] [address] Celina Cole CRNP [address] [place] [address] Normal in third trimester*; History of prior with IUGR ; History of depression, currently Allergies Active Allergy Reactions Criticality Noted Date Comments Adhesive Tape Rash Medium 11/09/2015 Blistered under Steri-strips on Day 2 after Nexplanon placement. documented as of this encounter (statuses as of 05/11/2023) Medications Medication Sig Dispensed Refills Start Date [...] as of this encounter (statuses as of 05/11/2023) Active Problems Problem Noted Date Diagnosed Date [...] as of this encounter (statuses as of 05/11/2023) Resolved Problems Problem Noted Date Diagnosed Date [...] as of this encounter (statuses as of 05/11/2023) Immunizations Name Administration Dates Next Due HPV [...] have money to get more. Patient refused [place] Depression Scale Answer Date Recorded [place] Depression Scale Total 0 12/15/2022 The thought [...] Sign Reading Time Taken Comments Blood Pressure 114/64 05/11/2023 8:39 AM EST Pulse - - Temperature - - Respiratory Rate - - Oxygen Saturation - - Inhaled Oxygen Concentration - - Weight 74.8 kg (165 lb) 05/11/2023 8:39 AM EST Height 160 cm (5' 3") 05/11/2023 8:39 AM EST Body Mass Index 29.23 05/11/2023 8:39 AM EST documented in this encounter Progress Notes * Celina Cole CRNP - 05/11/2023 9:18 AM EST 30w4d Feeling so much better with daily omeprazole. No other concerns. Baby is active. No contractions, bleeding, or LOF. ROS Martin * Akanksha Lara LPN - 05/11/2023 8:39 AM EST 30w4d documented in this encounter Plan of Treatment Upcoming Encounters Date Type Department Care Team (Late st Contact Info) Description 05/22/2023 7:30 AM EST Imaging Radiology [facility] [address] [facility] [place] [address] 05/22/2023 8:15 AM EST Office Visit Gynecology/Obstetrics [address] [place] [address] Celina Cole CRNP [address] [place] [address] 06/08/2023 8:30 AM EST Office Visit Gynecology/Obstetrics Ethan Tian [address] [place] [address] Mitzi Henning, DNP, CNM [address] [place] [address] Health Maintenance Due Date Last Done Comments [...]
--- OUTSIDE RECORDS SUMMARY | 2023-07-18 15:44 | External Medical Summary ---
Author Name Unknown Address Unknown Organization [facility] [address] [place] [address] Laboratory Report Ordering Provider Test Date Status BRENTON KNUTSON 04/27/2023 11:32:09 Final Observation Date Value Abnormality Reference (Units ) Status Glucose [Moles/volume] in Serum or Plasma --1 hour post 50 g glucose PO 04/27/2023 11:32:09 84 70-129 (mg/dL) Final Performing Location [facility] 0 - [address] [place] [address]
--- OUTSIDE RECORDS SUMMARY | 2023-07-18 15:44 | External Medical Summary ---
Author Name Unknown Address Unknown Organization K0G[facility] - [address] [place] [address] Laboratory Report Ordering Provider Test Date Status RASHEED CABRERAAIL 05/22/2023 08:53:00 Final Observation Date Value Abnormality Reference (Units ) Status WBC, Total 05/22/2023 08:53:00 9.76 4.00-10.8 0 (K/uL) Final RBC 05/22/2023 08:53:00 3.91 3.85-5.15 (M/uL) Final Hemoglobin 05/22/2023 08:53:00 11.1 Below low normal 12 .0-15.3 (g/dL) Final HCT 05/22/2023 08:53:00 33.3 Below low normal 36. 0-45.2 (%) Final MCV 05/22/2023 08:53:00 85.2 81.5-97.5 (fL) Final MCH 05/22/2023 08:53:00 28.4 27.0-34.0 (pg) Final MCHC 05/22/2023 08:53:00 33.3 32.0-36.0 (g/dL) Final RDW 05/22/2023 08:53:00 12.4 11.5-15.5 (%) Final Platelets 05/22/2023 08:53:00 231 140-400 (K /uL) Final MPV 05/22/2023 08:53:00 9.6 6.6-11.1 ( fL) Final Performing [facility] - [address] [place] [address]
--- OUTSIDE RECORDS SUMMARY | 2023-07-18 15:44 | External Medical Summary ---
Author Name Unknown Address Unknown Organization [id number]:LABORATORY [facility] [place] - [address] [place] [address] Laboratory Report Ordering Provider Test Date Status BRENTON KNUTSON 04/27/2023 11:32:09 Final Observation Date Value Abnormality Reference (Units ) Status Ferritin 04/27/2023 11:32:09 21 13-150 (ng /mL) Final Performing Location [facility]ATORY [facility] - [address] [place] [address]
--- OUTSIDE RECORDS SUMMARY | 2023-07-18 15:44 | External Medical Summary ---
Author Name Unknown Address Unknown Organization [id number]:LABORATORY [facility] [address] - [address] [place] [id number] Laboratory Report Ordering Provider Test Date Status BRENTON KNUTSON 04/27/2023 11:32:09 Final Observation Date Value Abnormality Reference (Units ) Status WBC, Total 04/27/2023 11:32:09 9.36 4.00-10.8 0 (K/uL) Final RBC 04/27/2023 11:32:09 4.01 3.85-5.15 (M/uL) Final Hemoglobin 04/27/2023 11:32:09 11.4 Below low normal 12 .0-15.3 (g/dL) Final Anemia reflex testing trigge rs on a HGB < 12.0 for Females and HGB < 13.0 for Males in accordance with the WHO Anemia Guidelines
Anemia reflex testing triggers on a HGB < 12.0 for Females and HGB < 13.0 for Males in accordance with the WHO Anemia Guidelines HCT 04/27/2023 11:32:09 33.8 Below low normal 36. 0-45.2 (%) Final MCV 04/27/2023 11:32:09 84.3 81.5-97.5 (fL) Final MCH 04/27/2023 11:32:09 28.4 27.0-34.0 (pg) Final MCHC 04/27/2023 11:32:09 33.7 32.0-36.0 (g/dL) Final RDW 04/27/2023 11:32:09 12.5 11.5-15.5 (%) Final Platelets 04/27/2023 11:32:09 245 140-400 (K /uL) Final MPV 04/27/2023 11:32:09 9.2 6.6-11.1 ( fL) Final Performing Location LABORATORY [facility] [address] - [address] [place] [id number]
--- OUTSIDE RECORDS SUMMARY | 2023-07-18 15:44 | External Medical Summary | Summary of Care ---
Author Name Unknown Organization [facility] Address [address] [place] [address] Phone [phone] Care Team Providers Care Slice Plug Cutter Operator Name Role Phone Unavailable Primary Care Provider Unavailabl e Reason for Visit * Reason Comments Return Visit Encounter Details Date Type Department Care Team (Late st Contact Info) Description 04/27/2023 10:45 AM EST Office Visit Gynecology/Obstetric s [facility] Miless [address] [place] [address] Celina Cole CRNP [address] [place] [address] Normal in third trimester*; History of prior [...] have money to get more. Patient refused [place] Depression Scale Answer Date Recorded [place] Depression Scale Total 0 12/15/2022 The thought [...] Sign Reading Time Taken Comments Blood Pressure 110/72 04/27/2023 10:35 AM EST Pulse - - Temperature - - Respiratory Rate - - Oxygen Saturation - - Inhaled Oxygen Concentration - - Weight 70.8 kg (156 lb) 04/27/2023 10:35 AM EST Height 160 cm (5' 3") 04/27/2023 10:35 AM EST Body Mass Index 27.63 04/27/2023 10:35 AM EST documented in this encounter Progress Notes * Celina Cole CRNP - 04/27/2023 10:49 AM EST 28w4d Heartburn continues, not getting a ton of relief from Pepcid. Suggested she switch to Prilosec. Discomfort at top of uterus, not epigastric. Belly band hurt her back. Going to try KT tape. Baby is active. No contractions, bleeding, or LOF. Glucola today. Declines TDAP. Needs growth u/s in 3rd tri d/t history of IUGR. Will schedule around 32w. ROS Martin * Akanksha Lara LPN - 04/27/2023 10:40 AM EST 28w4d Doing glucola today Declines tdap documented in this encounter Plan of Treatment Upcoming Encounters Date Type Department Care Team (Late st Contact Info) Description 05/11/2023 8:45 AM EST Office Visit Gynecology/Obstetrics [facility] [address] [place] [address] Celina Cole CRNP [address] [place] [address] 05/22/2023 7:30 AM EST Imaging Radiology [facility] [address] [place] [address] 05/22/2023 8:15 AM EST Office Visit Gynecology/Obstetrics [facility] [address] [place] [address] Celina Cole CRNP [address] [place] [address] Scheduled Orders Name Type Priority Associated Diagnoses Orde r Schedule US PREG FOLLOW-UP EACH FETUS Medical Imaging Routine Normal in third trimester History of prior with IUGR Expected: 05/28/2023 (Approximate), Expires: 05/28/2024 Health Maintenance Due Date Last Done Comments [...]
--- OUTSIDE RECORDS SUMMARY | 2023-07-18 15:44 | External Medical Summary | Summary of Care ---
Author Name Unknown Organization [facility] Address [address] [place] [address] Phone [phone] Care Team Providers Care Religious Ritual Slaughterer Name Role Phone Unavailable Primary Care Provider Unavailabl e Encounter Details Date Type Department Care Team (Late st Contact Info) Description 04/27/2023 Orders Only Gynecology/Obstetrics Ethan Tian [address] [place] [address] Tita Burger PA-C [address] [place] [address] Allergies Active Allergy Reactions Criticality Noted Date [...] have money to get more. Patient refused [place] Depression Scale Answer Date Recorded [place] Depression Scale Total 0 12/15/2022 The thought [...] 05/11/2023 8:45 AM EST Office Visit Gynecology/Obstetrics [facility] [address] [place] [address] Celina Cole CRNP [address] [place] [address] 05/22/2023 7:30 AM EST Imaging Radiology [facility] [address] [place] [address] 05/22/2023 8:15 AM EST Office Visit Gynecology/Obstetrics [facility] [address] [place] [address] Celina Cole CRNP [address] [place] [address] Health Maintenance Due Date Last Done Comments [...]
--- OUTSIDE RECORDS SUMMARY | 2023-07-18 15:44 | External Medical Summary | Summary of Care ---
Author Name Unknown Organization [facility] Address [address] [place] [address] Phone [phone] Care Team Providers Care Ware Server Name Role Phone Unavailable Primary Care Provider Unavailabl e Reason for Visit * Reason Comments Return Visit Encounter Details Date Type Department Care Team (Late st Contact Info) Description 03/09/2023 10:45 AM EST Office Visit Gynecology/Obstetric s ThorneMatildawong Tian [address] [place] [address] Celina Cole CRNP [address] [place] [address] Normal in second trimester*; History of prior with IUGR ; History of depression, currently ; Encounter for follow-up ultrasound of anatomy Allergies Active Allergy Reactions Criticality Noted Date Comments Adhesive Tape Rash Medium 11/09/2015 Blistered under Steri-strips on Day 2 after Nexplanon placement. documented as of this encounter (statuses as of 03/09/2023) Medications Medication Sig Dispensed Refills Start Date End Date Status 6.75-0.2 MG Oral Tablet Take by mouth. 0 Active Ondansetron 4 MG Oral Tablet Disintegrating (Zofran) Place 1 Tablet on tongue every 8 hours as needed for Nausea. dissolve on tongue. 30 Tablet 1 01/15/2023 Active documented as of this encounter (statuses as of 03/09/2023) Active Problems Problem Noted Date Diagnosed Date [...] as of this encounter (statuses as of 03/09/2023) Resolved Problems Problem Noted Date Diagnosed Date [...] as of this encounter (statuses as of 03/09/2023) Immunizations Name Administration Dates Next Due HPV [...] have money to get more. Patient refused [place] Depression Scale Answer Date Recorded [place] Depression Scale Total 0 12/15/2022 The thought [...] Sign Reading Time Taken Comments Blood Pressure 110/70 03/09/2023 10:30 AM EST Pulse - - Temperature - - Respiratory Rate - - Oxygen Saturation - - Inhaled Oxygen Concentration - - Weight 69.7 kg (153 lb 9.6 oz) 03/09/2023 10:30 AM EST Height 160 cm (5' 3") 03/09/2023 10:30 AM EST Body Mass Index 27.21 03/09/2023 10:30 AM EST documented in this encounter Progress Notes * Celina Cole CRNP - 03/09/2023 10:41 AM EST 21w4d Complaints: having headaches, relieved by tylenol. Likely not drinking enough water. +FM. No contractions, bleeding, or LOF. Anatomy u/s today, formal report pending. Needs u/s in 2 weeks for missed views. ROS Martin * Malu Johnson LPN - 03/09/2023 10:36 AM EST 21w4d Pt denies any concerns documented in this encounter Plan of Treatment Upcoming Encounters Date Type Department Care Team (Late st Contact Info) Description 03/23/2023 3:00 PM EST Imaging Radiology [facility] [address] [place] [address] 04/06/2023 11:30 AM EST Office Visit Gynecology/Obstetrics [facility] [address] [place] [address] Tita Burger PA-C [address] [place] [address] Scheduled Orders Name Type Priority Associated Diagnoses Orde r Schedule US PREG LIMITED 1 OR MORE FETUSES Medical Imaging Routine Encounter for follow-up ultrasound of anatomy Expected: 03/23/2023 (Approximate), Expires: 04/08/2024 Health Maintenance Due Date Last Done Comments [...] depression, currently with other poor obstetric history Encounter for follow-up ultrasound of anatomy documented in this encounter
--- OUTSIDE RECORDS SUMMARY | 2023-07-18 15:44 | External Medical Summary ---
Author Name Unknown Address Unknown Organization K01:[facility] [place] [facility] [address] [facility] [address] Laboratory Report Ordering Provider Test Date Status RASHEED CABRERAMARTINEZ 06/22/2023 12:01:36 Final Observation Date Value Abnormality Reference (Units ) Status Streptococcus agalactiae DNA [Presence] in Specimen by LILA with probe detection 06/22/2023 12:01:36 Negative Negative Final No Group B Streptococcus det ected by culture-enhanced PCR (amplified probe).
The collection of vaginal/rectal swab specimen combinations (FDA approved specimen type) is optimal for the detection of Group B Streptococcus. Single source collection (vaginal only or rectal only) or alternate specimen sources may lead to false negative results. Performing Location [facility] [address] [facility] [address]
--- OUTSIDE RECORDS SUMMARY | 2023-07-18 15:45 | External Medical Summary | Summary of Care ---
Author Name Unknown Organization [facility] Address [address] [place] [address] Phone [phone] Care Team Providers Care Dowel Sticker Operator Name Role Phone Unavailable Primary Care Provider Unavailabl e Reason for Visit * Reason Comments Return Visit Encounter Details Date Type Department Care Team Description 02/09/2023 [facility] [address] [place] [address] Celina Cole CRNP [address] [place] [address] Normal in second trimester*; History of prior with IUGR ; History of depression, currently Allergies Active Allergy Reactions Severity Noted Date Comments Adhesive Tape Rash Medium 11/09/2015 Blistered under Steri-strips on Day 2 after Nexplanon placement. documented as of this encounter (statuses as of 02/09/2023) Medications Medication Sig Dispensed Refills Start Date End Date Status 6.75-0.2 MG Oral Tablet Take by mouth. 0 Active Ondansetron 4 MG Oral Tablet Disintegrating (Zofran) Place 1 Tablet on tongue every 8 hours as needed for Nausea. dissolve on tongue. 30 Tablet 1 01/15/2023 Active documented as of this encounter (statuses as of 02/09/2023) Active Problems Problem Noted Date Normal 12/15/2022 History of prior with IUGR new born 12/15/2022 History of depression, ten tly 12/15/2022 Overview: No meds at time of NOB SHUBHAM (generalized anxiety disorder) 05/17 anxiety 12/19/2021 Overview: Anxiety and depression primarily related to feeding issues . Depression screen 23, no thoughts of harm to self or others. 12/19 start Zoloft 25 mg Psychiatry referral depression 12/19/2021 Overview: Anxiety and depression . Depression screen 23, no thoughts of harm to self or others. 12/19 start Zoloft 25 mg Psychiatry referral Other seasonal allergic rhinitis 015 History of allergy to latex 11/10/2014 Mild intermittent asthma with exacerbati on 11/09/2014 Allergic conjunctivitis 11/09/2014 Dyslipidemia, goal to be determined 10/22 Syncope and collapse 11/15/2011 Allergic rhinitis 11/16/2008 Other acne 11/16/2008 Estimated Date of Delivery Comme nts Yes 07/16/2023 Based on last me nstrual period of 10/09/2022 (Exact Date) documented as of this encounter (statuses as of 02/09/2023) Resolved Problems Problem Noted Date Resolved Date Anxiety during 12/15/2022 023 IUGR (intrauterine growth retardation) affecting mother 10/07/2021 12/19/2021 Overview: EWF 8th [...] We discussed movement counting. Low-lying placenta 06/27/2021 12/19/2021 Overview: 1.3 cm from os at 28 [...] as of 35wk ultrasound. Supervision of high-risk , unspecified trimester 04/01/2021 12/19/2021 Maternal asthma complicating 12/19/2021 Overview: No meds Last Assessment & Plan: Well-controlled without medication. Reports no recent rescue inhaler use. documented as of this encounter (statuses as of 02/09/2023) Immunizations Name Administration Dates Next Due HPV [...] = 0.6 oz pur e alcohol) occasionally Estimated Date of Delivery Comme nts Yes 07/16/2023 Based on last me nstrual period of 10/09/2022 (Exact Date) Sex Assigned at Date Recorded Female 11/30/2022 8:49 AM E DT Job Start Date Occupation Industry Not on file Not on file Not on file documented as of this encounter Last Filed Vital Signs Vital Sign Reading Time Taken Comments Blood Pressure 116/70 02/09/2023 8:26 AM EDT Pulse - - Temperature - - Respiratory Rate - - Oxygen Saturation - - Inhaled Oxygen Concentration - - Weight 67.9 kg (149 lb 12.8 oz) 02/09/2023 8:26 AM EDT Height 160 cm (5' 3") 02/09/2023 8:26 AM EDT Body Mass Index 26.54 02/09/2023 8:26 AM EDT documented in this encounter Progress Notes * ROS Martin - 02/09/2023 8:44 AM EDT 17w4d No concerns. N/v finally resolved. +quickening. No bleeding. Anatomy u/s with next visit. ROS Martin * Malu Johnson LPN - 02/09/2023 8:29 AM EDT 17w4d Pt denies any concerns. documented in this encounter Plan of Treatment Upcoming Encounters Date Type Specialty Care Team Description 03/09/2023 Imaging Radiology 03/09/2023 Office Visit Gynecology Obstetrics Celina Cole CRNP [address] [place] [address] Scheduled Orders Name Type Priority Associated Diagnoses Orde r Schedule US PREG SINGLE/1ST GEST, 14 WEEKS OR LATER Medical Imaging Routine Normal in second trimester Expected: 03/12/2023 (Approximate), Expires: 03/12/2024 Health Maintenance Due Date Last Done Comments [...]
[2023-07-18] MEDS: METHYLERGONOVINE MALEATE 0.2 MG/ML AMP ONE (18:33)
[2023-07-18] MEDS ORDERED: OXYTOCIN 30 UNITS/NSS 30 UNITS/500 ML BAG IV PRN (18:39)
[2023-07-18] MEDS ORDERED: HYDROCORTISONE ACETATE 25 MG SUPP PR PRN (18:39)
[2023-07-18] MEDS ORDERED: METHYLERGONOVINE MALEATE 0.2 MG/ML AMP IM STA (18:39)
[2023-07-18] MEDS ORDERED: bisacodyL 10 MG SUPP PR PRN (18:39)
[2023-07-18] MEDS ORDERED: ACETAMINOPHEN 325 MG TAB PO PRN (18:39)
--- NOTE | 2023-07-18 18:42 | Delivery Summary ---
Vaginal Delivery Summary Date of Service July 18, 2023 Vaginal Delivery Summary Delivery Note History synopsis: Patient is a 33-year-old G2, P1 at 40 weeks and 2 days who presented for elective induction of labor for postdates. On admission she was 3 cm, artificial rupture of membranes was performed on admission and she was started on oxytocin for augmentation. She received an epidural for pain control and progressed to 3 to 4 cm. She was then checked by nursing staff later in the afternoon and found to be complete. She pushed with nursing staff and then I was called for delivery Delivery Summary: Patient was placed in the dorsal lithotomy position. She was prepped and draped in the usual sterile fashion. Upon maternal pushing the head was delivered atraumatically followed by the anterior shoulders, posterior shoulders then the remainder of the infants body. The infant was immediately placed on mother's abdomen, dried and stimulated. Delayed cord clamping for 60 seconds was performed. The infants mouth and nose were bulb suctioned by nursing staff. A male infant was delivered at 1819, weighing 3580g with APGARS of 8 at 1 minute and 9 at 5 minutes. The was handed off to the awaiting nursing staff. Cord blood gases were not obtained. The placenta delivered intact with three vessel cord. Placenta was sent to pathology. Thirty units of Pitocin were added to the IV fluid and allowed to run freely. Uterine massage was performed until uterus was deemed firm. Noted intermittent uterine atony and patient was given 1 dose of Methergine IM in her thigh. Upon inspection of the perineum, vagina and cervix were intact. Upon re-inspection the patient was hemostatic. Uterus again massaged and found to be firm. Needle and sponge counts were correct. Patient was stable and allowed to recover in L&D room. Infant was stable and remained in room with mother in the labor and delivery unit. EBL 400mls
--- NOTE | 2023-07-18 19:19 | Anesthesiology Progress Note ---
Date of Service July 18, 2023 Anesthesia Post Procedure Vital Signs Vital Signs: Temp Pulse Resp BP Pulse Ox 07/18/23 19:06 101 H 142/93 H 07/18/23 19:05 16 07/18/23 18:53 82 118/74 07/18/23 18:50 18 07/18/23 18:35 36.8 C 18 07/18/23 18:34 97 H 98 07/18/23 18:29 99 H 97 07/18/23 18:26 107 H 94 07/18/23 18:24 115 H 96 07/18/23 18:19 143 H 18 99 07/18/23 18:18 138 H 90 07/18/23 18:14 132 H 97 07/18/23 18:12 121 H 93 07/18/23 18:09 119 H 96 07/18/23 18:07 129 H 132/85 07/18/23 18:06 98 H 91 07/18/23 18:04 125 H 96 07/18/23 18:01 121 H 93 07/18/23 18:00 16 07/18/23 18:00 16 07/18/23 17:59 119 H 97 07/18/23 17:54 109 H 98 07/18/23 17:53 142 H 94 07/18/23 17:50 153 H 137/62 07/18/23 17:49 122 H 98 07/18/23 17:46 104 H 93 07/18/23 17:44 93 H 98 07/18/23 17:39 85 99 07/18/23 17:35 81 135/71 07/18/23 17:34 90 98 07/18/23 17:30 107 H 18 92 07/18/23 17:29 93 H 98 07/18/23 17:24 95 H 98 07/18/23 17:21 96 H 133/66 07/18/23 17:19 93 H 100 07/18/23 17:14 99 H 98 07/18/23 17:09 101 H 97 07/18/23 17:05 131 H 124/68 94 07/18/23 17:04 110 H 97 07/18/23 17:00 16 07/18/23 17:00 16 07/18/23 16:59 98 07/18/23 16:59 152 H 07/18/23 16:59 119 H 93 07/18/23 16:54 136 H 98 07/18/23 16:53 163 H 92 07/18/23 16:49 139 H 89 L 07/18/23 16:46 100 H 94 07/18/23 16:44 105 H 99 07/18/23 16:39 123 H 96 07/18/23 16:37 102 H 92 07/18/23 16:36 65 102/59 L 07/18/23 16:35 36.5 C 07/18/23 16:34 63 98 07/18/23 16:30 16 07/18/23 16:30 16 07/18/23 16:29 99 07/18/23 16:29 112 H 07/18/23 16:29 131 H 93 07/18/23 16:24 126 H 98 07/18/23 16:22 122 H 07/18/23 16:22 139/81 07/18/23 16:22 100 H 127/100 07/18/23 16:19 129 H 98 07/18/23 16:17 90 93 07/18/23 16:14 65 97 07/18/23 16:09 69 99 07/18/23 16:05 59 L 113/73 07/18/23 16:04 57 L 96 07/18/23 15:59 59 L 98 07/18/23 15:54 58 L 97 07/18/23 15:51 61 118/73 07/18/23 15:49 63 97 07/18/23 15:44 62 96 07/18/23 15:39 64 97 07/18/23 15:36 60 113/68 07/18/23 15:34 58 L 95 07/18/23 15:30 16 07/18/23 15:30 16 07/18/23 15:29 64 96 07/18/23 15:24 65 97 07/18/23 15:22 71 94 07/18/23 15:20 63 113/67 07/18/23 15:19 59 L 96 07/18/23 15:14 56 L 95 07/18/23 15:09 61 96 07/18/23 15:05 59 L 116/66 07/18/23 15:04 63 96 07/18/23 15:00 16 07/18/23 15:00 16 07/18/23 14:59 57 L 97 07/18/23 14:54 57 L 95 07/18/23 14:52 56 L 113/78 07/18/23 14:49 61 95 07/18/23 14:45 36.7 C 07/18/23 14:44 58 L 97 07/18/23 14:41 74 94 07/18/23 14:39 74 96 07/18/23 14:36 56 L 115/68 07/18/23 14:34 56 L 96 07/18/23 14:30 18 07/18/23 14:30 18 07/18/23 14:29 57 L 97 07/18/23 14:26 88 92 07/18/23 14:24 85 97 07/18/23 14:20 70 94/59 L 07/18/23 14:19 70 95 07/18/23 14:14 77 96 07/18/23 14:13 80 94 07/18/23 14:09 69 97 07/18/23 14:05 60 97/55 L 07/18/23 14:04 58 L 95 07/18/23 14:00 16 07/18/23 14:00 16 07/18/23 13:59 60 96 07/18/23 13:54 70 97 07/18/23 13:50 82 93/60 L 07/18/23 13:49 61 96 07/18/23 13:44 60 95 07/18/23 13:39 59 L 96 07/18/23 13:35 65 102/60 07/18/23 13:34 64 97 07/18/23 13:30 16 07/18/23 13:30 16 07/18/23 13:29 67 96 07/18/23 13:24 62 96 07/18/23 13:20 67 99/56 L 07/18/23 13:19 66 95 07/18/23 13:14 66 96 07/18/23 13:09 65 95 07/18/23 13:07 65 106/52 L 07/18/23 13:04 75 96 07/18/23 13:00 16 07/18/23 13:00 16 07/18/23 12:59 73 96 07/18/23 12:54 68 97 07/18/23 12:49 83 96 07/18/23 12:47 88 93 07/18/23 12:45 36.5 C 07/18/23 12:44 70 127/77 97 07/18/23 12:39 98 07/18/23 12:39 63 07/18/23 12:39 69 129/82 07/18/23 12:34 65 135/67 97 07/18/23 12:30 16 07/18/23 12:30 16 07/18/23 12:29 69 97 07/18/23 12:28 72 132/81 07/18/23 12:27 65 137/84 07/18/23 12:24 67 98 07/18/23 12:23 63 16 129/79 07/18/23 12:21 70 127/74 07/18/23 12:19 72 136/81 98 07/18/23 12:18 16 07/18/23 12:18 16 07/18/23 12:17 67 120/63 07/18/23 12:14 73 97 07/18/23 12:13 68 16 138/77 07/18/23 12:11 78 135/71 07/18/23 12:09 82 100 07/18/23 12:08 78 143/86 H 07/18/23 12:04 89 99 07/18/23 11:59 81 95 07/18/23 11:58 99 H 94 07/18/23 11:54 61 97 07/18/23 11:49 63 98 07/18/23 11:44 62 97 07/18/23 11:38 65 124/77 07/18/23 11:09 63 120/74 07/18/23 10:45 36.8 C 07/18/23 10:39 63 131/87 07/18/23 10:08 73 124/85 07/18/23 09:38 64 128/83 07/18/23 09:08 67 127/83 07/18/23 08:21 88 132/79 07/18/23 08:16 36.8 C 88 16 132/79 Transfer of Care Handoff Completed per policy Notes Mental Status: alert / awake / arousable and participated in evaluation Patient Amnestic to Procedure: Yes Nausea / Vomiting: adequately controlled Pain: adequately controlled Airway Patency, RR, SpO2: stable & adequate BP & HR: stable & adequate Hydration State: stable & adequate Anesthetic Complications: no major complications apparent and Pt Satisfied with anesthetic care
[2023-07-18] MEDS: METHYLERGONOVINE MALEATE 0.2 MG/ML AMP IM ONE (19:55)
--- NOTE | 2023-07-18 20:06 | Obstetrical Progress Note ---
Date of Service July 18, 2023 Assessment & Plan (1) hemorrhage: QBL 819 mL, with additional 400 mL at the time of delivery. hemorrhage Will give a second dose of Methergine IM at this time Stat CBC hemorrhage type: third-stage Qualified Code(s): O72.0 - Third-stage hemorrhage Subjective Called by nursing that patient had passed a large clot, and I need to assess her bleeding Patient laying flat on the bed, pale, ice pack, and nursing at bedside. They have already drained her bladder Physical Exam Genitourinary Uterus was firm, bimanual exam noted large amount of clot sitting within the posterior cul-de-sac that was swept out, remove clot from the cervix with a small amount of tissue. Cervix was ruby down well. No atony noted. Results & Data Vital Signs (Past 12 Hours) Vital Signs Temp Pulse Resp BP Pulse Ox 07/18/23 19:49 100 H 106/74 07/18/23 19:48 117 H 102/65 07/18/23 19:47 117 H 105/66 07/18/23 19:43 90 96/58 L 07/18/23 19:35 16 07/18/23 19:35 101 H 127/74 07/18/23 19:22 89 131/73 07/18/23 19:20 16 07/18/23 19:06 101 H 142/93 H 07/18/23 19:05 16 07/18/23 18:53 82 118/74 07/18/23 18:50 18 07/18/23 18:35 36.8 C 18 07/18/23 18:34 97 H 98 07/18/23 18:29 99 H 97 07/18/23 18:26 107 H 94 07/18/23 18:24 115 H 96 07/18/23 18:19 143 H 18 99 07/18/23 18:18 138 H 90 07/18/23 18:14 132 H 97 07/18/23 18:12 121 H 93 07/18/23 18:09 119 H 96 07/18/23 18:07 129 H 132/85 07/18/23 18:06 98 H 91 07/18/23 18:04 125 H 96 07/18/23 18:01 121 H 93 07/18/23 18:00 16 07/18/23 18:00 16 07/18/23 17:59 119 H 97 07/18/23 17:54 109 H 98 07/18/23 17:53 142 H 94 07/18/23 17:50 153 H 137/62 07/18/23 17:49 122 H 98 07/18/23 17:46 104 H 93 07/18/23 17:44 93 H 98 07/18/23 17:39 85 99 07/18/23 17:35 81 135/71 07/18/23 17:34 90 98 07/18/23 17:30 107 H 18 92 07/18/23 17:29 93 H 98 07/18/23 17:24 95 H 98 07/18/23 17:21 96 H 133/66 07/18/23 17:19 93 H 100 07/18/23 17:14 99 H 98 07/18/23 17:09 101 H 97 07/18/23 17:05 131 H 124/68 94 07/18/23 17:04 110 H 97 07/18/23 17:00 16 07/18/23 17:00 16 07/18/23 16:59 98 07/18/23 16:59 152 H 07/18/23 16:59 119 H 93 07/18/23 16:54 136 H 98 07/18/23 16:53 163 H 92 07/18/23 16:49 139 H 89 L 07/18/23 16:46 100 H 94 07/18/23 16:44 105 H 99 07/18/23 16:39 123 H 96 07/18/23 16:37 102 H 92 07/18/23 16:36 65 102/59 L 07/18/23 16:35 36.5 C 07/18/23 16:34 63 98 07/18/23 16:30 16 07/18/23 16:30 16 07/18/23 16:29 99 07/18/23 16:29 112 H 07/18/23 16:29 131 H 93 07/18/23 16:24 126 H 98 07/18/23 16:22 122 H 07/18/23 16:22 139/81 07/18/23 16:22 100 H 127/100 07/18/23 16:19 129 H 98 07/18/23 16:17 90 93 07/18/23 16:14 65 97 07/18/23 16:09 69 99 07/18/23 16:05 59 L 113/73 07/18/23 16:04 57 L 96 07/18/23 15:59 59 L 98 07/18/23 15:54 58 L 97 07/18/23 15:51 61 118/73 07/18/23 15:49 63 97 07/18/23 15:44 62 96 07/18/23 15:39 64 97 07/18/23 15:36 60 113/68 07/18/23 15:34 58 L 95 07/18/23 15:30 16 07/18/23 15:30 16 07/18/23 15:29 64 96 07/18/23 15:24 65 97 07/18/23 15:22 71 94 07/18/23 15:20 63 113/67 07/18/23 15:19 59 L 96 07/18/23 15:14 56 L 95 07/18/23 15:09 61 96 07/18/23 15:05 59 L 116/66 07/18/23 15:04 63 96 07/18/23 15:00 16 07/18/23 15:00 16 07/18/23 14:59 57 L 97 07/18/23 14:54 57 L 95 07/18/23 14:52 56 L 113/78 07/18/23 14:49 61 95 07/18/23 14:45 36.7 C 07/18/23 14:44 58 L 97 07/18/23 14:41 74 94 07/18/23 14:39 74 96 07/18/23 14:36 56 L 115/68 07/18/23 14:34 56 L 96 07/18/23 14:30 18 07/18/23 14:30 18 07/18/23 14:29 57 L 97 07/18/23 14:26 88 92 07/18/23 14:24 85 97 07/18/23 14:20 70 94/59 L 07/18/23 14:19 70 95 07/18/23 14:14 77 96 07/18/23 14:13 80 94 07/18/23 14:09 69 97 07/18/23 14:05 60 97/55 L 07/18/23 14:04 58 L 95 07/18/23 14:00 16 03/27/24 14:00 16 07/18/23 13:59 60 96 07/18/23 13:54 70 97 07/18/23 13:50 82 93/60 L 07/18/23 13:49 61 96 07/18/23 13:44 60 95 07/18/23 13:39 59 L 96 07/18/23 13:35 65 102/60 07/18/23 13:34 64 97 07/18/23 13:30 16 07/18/23 13:30 16 07/18/23 13:29 67 96 07/18/23 13:24 62 96 07/18/23 13:20 67 99/56 L 07/18/23 13:19 66 95 07/18/23 13:14 66 96 07/18/23 13:09 65 95 07/18/23 13:07 65 106/52 L 07/18/23 13:04 75 96 07/18/23 13:00 16 07/18/23 13:00 16 07/18/23 12:59 73 96 07/18/23 12:54 68 97 07/18/23 12:49 83 96 07/18/23 12:47 88 93 07/18/23 12:45 36.5 C 07/18/23 12:44 70 127/77 97 07/18/23 12:39 98 07/18/23 12:39 63 07/18/23 12:39 69 129/82 07/18/23 12:34 65 135/67 97 07/18/23 12:30 16 07/18/23 12:30 16 07/18/23 12:29 69 97 07/18/23 12:28 72 132/81 07/18/23 12:27 65 137/84 07/18/23 12:24 67 98 07/18/23 12:23 63 16 129/79 07/18/23 12:21 70 127/74 07/18/23 12:19 72 136/81 98 07/18/23 12:18 16 07/18/23 12:18 16 07/18/23 12:17 67 120/63 07/18/23 12:14 73 97 07/18/23 12:13 68 16 138/77 07/18/23 12:11 78 135/71 07/18/23 12:09 82 100 03/27/24 12:08 78 143/86 H 07/18/23 12:04 89 99 07/18/23 11:59 81 95 07/18/23 11:58 99 H 94 07/18/23 11:54 61 97 07/18/23 11:49 63 98 07/18/23 11:44 62 97 07/18/23 11:38 65 124/77 07/18/23 11:09 63 120/74 07/18/23 10:45 36.8 C 07/18/23 10:39 63 131/87 07/18/23 10:08 73 124/85 07/18/23 09:38 64 128/83 07/18/23 09:08 67 127/83 07/18/23 08:21 88 132/79 07/18/23 08:16 36.8 C 88 16 132/79
[2023-07-18 20:33] LABS: Basophils # (auto) 0.05 K/uL (0.00-0.20); Basophils % (auto) 0.2 %; Eosinophils # (auto) 0.01 K/uL (0.00-0.50); Hematocrit (blood only) 29.9 % (37.0-47.0); Hemoglobin 10.3 g/dl (12.0-16.0); Immature Granulocytes # (auto) 0.08 K/uL (0.01-0.20); Immature Granulocytes % (auto) 0.4 %; Lymphocytes # (auto) 1.59 K/uL (1.20-3.40); Lymphocytes % (auto) 7.5 %; Mean Corpuscular Hemoglobin 27.8 pg (25.0-34.0); Mean Corpuscular Hgb Conc 34.4 g/dL (32.0-36.0); Mean Corpuscular Volume 80.6 fL (80.0-100.0); Mean Platelet Volume 10.1 fL (9.4-12.4); Monocytes # (auto) 1.43 K/uL (0.11-0.59); Monocytes % (auto) 6.7 %; Neutrophils % (auto) 85.2 %; Platelet Count 208 K/uL (130-400); RDW Coefficient of Variation 12.4 % (11.5-14.5); RDW Standard Deviation 35.8 fL (36.4-46.3); Red Blood Count 3.71 M/uL (4.20-5.40); White Blood Count 21.26 K/ul (4.8-10.8)
[2023-07-18] MEDS ORDERED: miSOPROStoL 200 MCG TAB PO STA (20:43)
[2023-07-18] MEDS: CARBOPROST TROMETHAMINE 250 MCG/ML AMPUL IM STA (20:54)
[2023-07-18] MEDS: miSOPROStoL 200 MCG TAB PO STA (21:03)
[2023-07-18] MEDS ORDERED: SODIUM CHLORIDE 0.9% 250 ML IV PRN (21:25)
[2023-07-18] MEDS: ONDANSETRON INJ 2 MG/ML 2 ML VIAL IV PRN (21:35)
[2023-07-18] MEDS: IBUPROFEN 600 MG TAB PO PRN (23:02)
[2023-07-19] MEDS: DIPHTHER/TETAN/PERTUS Vaccine (Tdap, Adol/Adult) 0.5mL IM ONE (00:33)
[2023-07-19] MEDS: fentaNYL citrate PF 100 MCG/2 ML VIAL EPI STA (00:34)
[2023-07-19] MEDS: SODIUM CHLORIDE 0.9% PF INJ 10 ML VIAL ONE (00:34)
[2023-07-19] MEDS: DOCUSATE SODIUM 100 MG CAP PO SCH (00:34)
[2023-07-19] MEDS: LIDOCAINE 2%/EPINEPHRINE 1:200,000 20 ML PF EPI STA (00:34)
[2023-07-19] MEDS: BUPIVACAINE 0.25% PF 30 ML VIAL EPI STA (04:53)
[2023-07-19] MEDS: BENZOCAINE 20% SPRY 85 APPLN/85 GM CAN EXT PRN (04:53)
[2023-07-19 07:12] LABS: Hematocrit (blood only) 26.5 % (37.0-47.0); Hemoglobin 9.1 g/dl (12.0-16.0); Mean Corpuscular Hemoglobin 27.5 pg (25.0-34.0); Mean Corpuscular Hgb Conc 34.3 g/dL (32.0-36.0); Mean Corpuscular Volume 80.1 fL (80.0-100.0); Platelet Count 202 K/uL (130-400); RDW Coefficient of Variation 12.5 % (11.5-14.5); RDW Standard Deviation 36.3 fL (36.4-46.3); Red Blood Count 3.31 M/uL (4.20-5.40); White Blood Count 18.98 K/ul (4.8-10.8)
[2023-07-19] MEDS: FERROUS SULFATE 325 MG TAB PO SCH (08:46)
[2023-07-19] MEDS: IRON SUCROSE 300 MG in SODIUM CHLORIDE 0.9% 250 ML IV ONE (08:46)
[2023-07-19] MEDS: PRENATAL VITAMIN 1 TAB PO SCH (08:46)
[2023-07-19] MEDS: bisacodyL 5 MG TABEC PO SCH (20:02)
--- NOTE | 2023-07-30 10:00 | Discharge Summary ---
Date of Service July 30, 2023 Admission HPI Per Admitting Provider Patient is a pleasant 33-year-old -0-0-1 at 40 weeks and 2 days who presents for induction of labor for postdates. Patient denies any regular contractions, leaking of fluid or vaginal bleeding. Notes good movement. Patient denies any headache, blurry vision, right upper quadrant or epigastric pain. Otherwise feeling well has been complicated by mild intermittent asthma, has not used inhaler for several months. History of depression and anxiety, not currently on anything. Notes a history of IUGR her last , growth has been appropriate this . She denies any history of STDs, including genital herpes. States she is safe at home. Admission Exam (Per Admitting) Constitutional WD/WN, vitals as above Respiratory normal respiratory effort, lungs clear to auscultation Cardiovascular RRR, no murmur, no edema Gastrointestinal (Abdomen) normal bowel sounds, soft, nontender, no hepatosplenomegaly Discharge Data Consultations 07/18/23 08:52 Consult Anesthesiology Stat Hospital Course (1) hemorrhage: QBL 819 mL, with additional 400 mL at the time of delivery. hemorrha ge Will give a second dose of Methergine IM at this time Stat CBC
== END 2023-07-19 20:20 | disposition home or self-care (01) | DRG 807 ==
LOC: 4S1 07:56 → 4E2 23:21